=== PATIENT | male | born 1935 | race Caucasian/White ===

== ENCOUNTER 2018-11-10 11:09 | Inpatient (IN) ==
[2018-11-10 12:21] LABS: ALBUMIN 3.2 g/dL (3.5-5.0); CALCIUM 8.2 mg/dL (8.8-10.2); POTASSIUM 4.7 mmol/L (3.5-5.1); TOTAL BILIRUBIN 0.15 mg/dL (0.20-1.00); TOTAL PROTEIN 6.3 g/dL (6.3-8.3)
[2018-11-10 13:35] LABS: BASO# 0.03 X1000 (0.0-0.2); BASO% 0.2 % (0.0-0.8); EOS# 0.17 X1000 (0.0-0.7); EOS% 1.2 % (0.0-10.0); HEMATOCRIT 14.3 % (42.0-52.0); IMM GRAN# 0.04 X1000 (0.0-0.04); IMM GRAN% 0.3 % (0.0-0.5); LYMPH% 20.4 % (20.5-51.1); MCH 29.9 PG (27-31); MCHC 30.8 g/dL (33-37); MCV 97.3 FL (81-99); MONO# 0.98 X1000 (0.11-0.59); MONO% 7.1 % (1.7-9.3); MPV 9.4 FL (7.4-10.4); NEUT# 9.73 X1000 (1.4-6.5); NEUT% 70.8 % (42.2-75.2); PLT 265 X1000 (130-400); RBC 1.47 XMIL (4.7-6.1); RDW 14.2 % (11.5-14.5); WBC 13.75 X1000 (4.8-10.8)
[2018-11-10 13:36] LABS: HEMOGLOBIN 4.4 g/dL (14.0-18.0)
[2018-11-10 13:42] LABS: INR 0.95; PROTIME 13.5 Seconds (11.0-16.0)
--- NOTE | 2018-11-10 14:18 | Diag Imaging Result Doc PS360 ---
EXAM: CHEST-PORTABLE 11/10/2018 HISTORY: SOB TECHNIQUE: AP portable at 1409 COMMENT: There is increased pulmonary vascularity. There is interstitial pulmonary edema and possible atelectasis or pneumonia in the left upper lobe. IMPRESSION: Mild pulmonary edema. Left upper lobe atelectasis. Electronically signed by Nadeem Starr 11/10/2018 2:16 PM
[2018-11-10 15:25] LABS: INR 1.03; PROTIME 14.3 Seconds (11.0-16.0)
[2018-11-10 15:26] LABS: PTT 26.4 Seconds (22.3-41.8)
[2018-11-10] MEDS ORDERED: NITROGLYCERIN ONE (15:32)
[2018-11-10] MEDS ORDERED: ASPIRIN ONE (15:32)
[2018-11-10] MEDS ORDERED: BENADRYL IV ONE (15:58)
[2018-11-10] MEDS ORDERED: LASIX IV ONE (15:58)
[2018-11-10] MEDS ORDERED: ROCEPHIN IM ONE (16:01)
[2018-11-10] MEDS ORDERED: XYLOCAINE-MPF 1% INJ ONE (16:01)
[2018-11-10 16:05] LABS: URINE SOURCE CLEAN CATCH
[2018-11-10 16:08] LABS: BILIRUBIN URINE NEGATIVE (NEGATIVE); BLOOD URINE NEGATIVE (NEGATIVE); COLOR YELLOW; GLUCOSE URINE TRACE mg/dL (NEGATIVE); KETONE URINE NEGATIVE (NEGATIVE); LEUKOCYTES URINE NEGATIVE (NEGATIVE); NITRITE URINE NEGATIVE (NEGATIVE); PROTEIN URINE 50 mg/dL (NEGATIVE); SP GRAVITY URINE 1.005; TURBIDITY URINE CLEAR (CLEAR); UROBILINOGEN URINE NORMAL (NORMAL)
[2018-11-10 16:10] LABS: UR EPITHELIAL CELLS <10 /HPF (<10); URINE BACTERIA NEGATIVE /HPF; URINE RBC <10 /HPF (<10); URINE WBC <10 /HPF (<10)
[2018-11-10 16:18] LABS: URINE YEAST NONE SEEN
--- NOTE | 2018-11-10 16:42 | PROVIDER DOCUMENTATION ---
This chart was entered by Constance Pulido Scribe, acting as scribe for Andre Cooper MD. HPI-Abdominal Pain/GI Problem - General Chief Complaint: Abnormal Lab[s] Stated Complaint: GI BLEED Time Seen by Provider: 11/10/18 11:47 Source: patient Allergies/Adverse Reactions: Patient Allergies Allergy/AdvReac Type Severity Reaction Status Date / Time Penicillins Allergy Unknown Verified 04/30/18 14:03 Home Medications: Home Medication List Medication Instructions Recorded Confirmed Last Taken Type ATORVAstatin [Lipitor] 20 mg PO DAILY 04/30/18 04/30/18 04/30/18 History Atenolol 50 mg PO DAILY 04/30/18 04/30/18 04/30/18 History Furosemide [Lasix] 40 mg PO DAILY 04/30/18 04/30/18 04/30/18 History Levothyroxine [Synthroid] 50 microgm PO DAILY 04/30/18 04/30/18 04/30/18 History Tamsulosin [Flomax] 0.4 mg PO DAILY 04/30/18 04/30/18 04/30/18 History Levofloxacin [Levaquin] 250 mg PO DAILY #14 tab 05/04/18 Unknown Rx Amlodipine [Norvasc] 5 mg PO BID #60 tab 05/05/18 Unknown Rx Insulin Detemir [Levemir] 20 unit SUBQ BID #4 insuln.pen 05/05/18 Unknown Rx Sodium Bicarbonate 1,300 mg PO BID #180 tablet 05/05/18 Unknown Rx - History of Present Illness-ABD Nature of Presenting Problems: Patient is a 83 year old male who presents to the ED with rectal bleeding. Patient states he was seen by PCP yesterday for rectal bleeding. Patient states he was informed yesterday to come to the ED. Patient denies abdominal pain, nausea, vomiting and shortness of breath. Patient states having black stool for 7 months intermittently. Patient states he is on 325 mg aspirin daily. Abdominal Pain Onset Location: reports: other (no abdominal pain per patient.) Pain Radiation: reports: no radiation Quality of Pain: reports: none Severity in ED: reports: mild Onset/Duration: reports: other (7 months) Timing: reports: still present, intermittent Activities at Onset: reports: light activity Modifying Factors: improves with: nothing Associated Symptoms: reports: other (rectal bleeding) Last BM: unsure Dark Stools Present?: reports: black Rectal Pain: reports: none Emesis Description: reports: none Bruising or Bleeding Gums?: No Similar Symptoms Previously?: Yes Recently seen or treated by another doctor?: Yes Review of Systems - Adult - REVIEW OF SYSTEMS - ADULT Constitutional: reports: no symptoms reported Eyes: reports: no symptoms reported Ears, Nose, Mouth & Throat: reports: no symptoms reported Cardiovascular: reports: no symptoms reported Respiratory: reports: no symptoms reported Gastrointestinal: reports: rectal bleeding. denies: abdominal pain, diarrhea, nausea, vomiting Genitourinary: reports: no symptoms reported Musculoskeletal: reports: no symptoms reported Integumentary: reports: no symptoms reported Neurological: reports: no symptoms reported Psychiatric: reports: no symptoms reported Endocrine: reports: no symptoms reported Hematologic/Lymphatic: reports: no symptoms reported Allergic/Immunologic: reports: no symptoms reported All Other Systems: Reviewed and Negative Past History - Adult - PAST MEDICAL HISTORY-ADULT Review of Records: reports: Nursing Assessment Review, Medications Reviewed, Social history reviewed & non-contributory. Major Childhood Illnesses: reports: denies history Cardiovascular: reports: HTN Respiratory: reports: denies history Gastrointestinal: reports: denies history Obstetrical/Gynecological: reports: denies history Genitourinary: reports: kidney disease Musculoskeletal: reports: denies history Neurological: reports: denies history Psychiatric: reports: denies history Endocrine/Immune: reports: Diabetes Other Conditions: reports: denies history - PRIOR SURGERIES/PROCEDURES Surgical/Procedure History: reports: reviewed, not pertinent, cholecystectomy - IMMUNIZATION STATUS Childhood Immunizations: See Nurse Assessment Flu Vaccine: See Nurse Assessment - FAMILY HISTORY Family History: reviewed, not pertinent - SOCIAL HISTORY Smoking: denies Substance Use: denies Living Situation: family Physical Exam-General - PHYSICAL EXAM-ADULT Initial Vital Signs Reviewed: Yes - CONSTITUTIONAL General Appearance: alert, no apparent distress, obese - EYES Eyes: pale conjunctivae - HEAD, EARS, NOSE, MOUTH & THROAT HENMT: other (dry mucous membranes) - RESPIRATORY Respiratory: chest non-tender, lungs clear, normal breath sounds - CARDIOVASCULAR Cardiovascular: normal peripheral pulses, regular rate, rhythm - GASTROINTESTINAL (ABDOMEN) Abdominal Exam: normal bowel sounds, non tender, soft - GENITOURINARY Rectal Exam: black stool - MUSCULOSKELETAL Extremity: normal inspection - SKIN Integumentary: normal turgor, warm/dry, pallor - NEUROLOGIC Neurologic: grossly normal - PSYCHIATRIC Psych/Mental Status: normal mood/affect, oriented x 3 Progress - PLAN OF CARE/RESULTS Progress/Plan/Lab Results: Vital Signs - 8 hr 11/10/18 11:13 11/10/18 12:32 Temperature 97.8 F Pulse Rate 70 66 Respiratory Rate 20 18 Blood Pressure 149/68 131/51 O2 Sat by Pulse Oximetry 100 100 Laboratory Results - last 24 hr 11/10/18 11/10/18 11/10/18 11:29 11:29 13:15 WBC Cancelled 13.75 H RBC Cancelled 1.47 L Hgb Cancelled 4.4 L* Hct Cancelled 14.3 L MCV Cancelled 97.3 MCH Cancelled 29.9 MCHC Cancelled 30.8 L RDW Std Deviation Cancelled 14.2 Plt Count Cancelled 265 MPV Cancelled 9.4 Immature Gran % (Auto) Cancelled 0.3 Neut % (Auto) Cancelled 70.8 Lymph % (Auto) Cancelled 20.4 L Mcdonough % (Auto) Cancelled 7.1 Eos % (Auto) Cancelled 1.2 Baso % (Auto) Cancelled 0.2 Immature Gran # (Auto) Cancelled 0.04 Neut # (Auto) Cancelled 9.73 H Lymph # (Auto) Cancelled 2.80 Mcdonough # (Auto) Cancelled 0.98 H Eos # (Auto) Cancelled 0.17 Baso # (Auto) Cancelled 0.03 Corrected WBC (Man) Cancelled Segmented Neutrophils Cancelled Band Neutrophils Cancelled Lymphocytes Cancelled Monocytes Cancelled Eosinophils Cancelled Basophils Cancelled Metamyelocytes Cancelled Myelocytes Cancelled Promyelocytes Cancelled Nucleated RBCs Cancelled Atypical Lymphocytes Cancelled Blast Cells Cancelled Hypochromia Cancelled Vacuolization Cancelled Toxic Granulation Cancelled Dohle Bodies Cancelled Large Platelets Cancelled Polychromasia Cancelled Poikilocytosis Cancelled Basophilic Stippling Cancelled Anisocytosis Cancelled Microcytosis Cancelled Macrocytosis Cancelled Spherocytes Cancelled Sickle Cells Cancelled Target Cells Cancelled Ovalocytes Cancelled Stomatocytes Cancelled [place] [employer] Bodies Cancelled Kamrar Cells Cancelled Unidentified Cells Cancelled Schistocytes Cancelled Sodium 139 Potassium 4.7 Chloride 109 H Carbon Dioxide 14 L Anion Gap 16 BUN 139 H Creatinine 4.0 H Estimated GFR/1.73 m2 14 BUN/Creatinine Ratio 33 Glucose 215 H Calculated Osmolality 326 Calcium 8.2 L Total Bilirubin 0.15 L AST 22 ALT 27 Alkaline Phosphatase 62 Total Protein 6.3 Albumin 3.2 L Globulin 3.1 Albumin/Globulin Ratio 1.0 Orders Category Date Time Status CBC WITH ELECTRONIC DIFF [HEME] Stat Lab 11/10/18 13:15 Completed COMPREHENSIVE METABOLIC PANEL [CHEM] Stat Lab 11/10/18 11:29 Completed OCCULT BLOOD SCREENING [STOOL] Stat Lab 11/10/18 11:48 Uncollected PROTIME WITH INR [COAG] Stat Lab 11/10/18 13:15 Received PTT [COAG] Stat Lab 11/10/18 13:15 Received GI Bleed (possible) Stat Oth 11/10/18 11:15 Ordered Result Diagrams: 11/10/18 13:15 11/10/18 11:29 - EKG 1 Time of EKG reading by physician:: 15:29 EKG Read and Signed by:: Andre Cooper EKG Interpretation (*Must complete 3 of following elements*): Abnormal Rate: 65 Rhythm: normal sinus rhythm with QRS QRS: RBB Comments: no STEMI - XRAY 1 XRAY Study: Chest Impression: See EMR Report (EXAM: CHEST-PORTABLE 11/10/2018 HISTORY: SOB TECHNIQUE: AP portable at 1409 COMMENT: There is increased pulmonary vascularity. There is interstitial pulmonary edema and possible atelectasis or pneumonia in the left upper lobe. IMPRESSION: Mild pulmonary edema. Left upper lobe atelectasis. Electronically signed by Nadeem Starr 11/10/2018 2: 16 PM 11/10/18 1416 Interpreting Physician: Nadeem Starr MD Dictated Date/Time: 11/10/18 1415 cc: Andre Cooper MD; None,PCP) - CONSULTS/PCP/HOSPITALIST Notification #1 *Consult/PCP/Hospitalist*: Dr. Parnell Time Discussed: 16:02 Reason/Comments: Dr. Cooper consulted with Dr. Parnell about patient. Consult Disposition: other (Dr. Parnell states give the patient blood and do not report trop.) #2 Consult: MIGEL Rondon for Hospitalist Time Discussed: 16:31 (Dr. Acuña accepted admit ) Reason/Comments: Dr. Cooper consulted with JOSE R Rondon about patient, Consult Disposition: Admit Departure - Departure Date of Disposition Decision: 11/10/18 Time of Disposition Decision: 16:32 DIAGNOSIS: Renal failure, Anemia Disposition: ADMITTED INPATIENT 09 Certified Medical Emergency: Emergent Condition: Fair Referrals and Follow-Ups: None,PCP [Primary Care Provider] - - Critical Care Note This patient required my direct & personal management of CC.: Yes Total Time (mins): 75 Critical Care Statement: This patient required my direct personal management to treat or rule out processes, the absence of which, could potentiallly result in sudden, clinically significant life or limb threatening deterioration. Attestation - Physician/ LUCIO Attestation The physician spent face to face time with patient:: Yes Advanced Practice Provider documentation review:: Supervising physician onsite and consulted in the evaluation and care of this patient. The physician did have a face to face encounter with the patient. This chart was documented by the indicated scribe, (Constance Pulido Scribe) and accurately reflects the services I performed and decisions made by me, Andre Cooper MD, as attested by the provider's signature.
[2018-11-10] MEDS ORDERED: ZOFRAN IV PRN (16:47)
[2018-11-10 17:19] LABS: IRON SATURATION 12 %; TIBC 270 ug/dL; TOTAL IRON 32 ug/dL (53-167); UNBOUND IRON 238 ug/dL (112-346)
[2018-11-10 17:38] LABS: FERRITIN 586 ng/mL (30-400)
--- NOTE | 2018-11-10 18:38 | HISTORY AND PHYSICAL ---
PRIMARY CARE PROVIDER: Dr. Pb Fontana PROFESSIONAL HOUSING CONSULTANT: Dr. Peters CHIEF COMPLAINT: Black tarry and bloody stools since April, passed out several days ago in the bathroom, has been having some dizzy spells ever since. HISTORY OF PRESENT ILLNESS: Mr. Brennen Bourgeois is an 83-year-old male with a medical history of morbid obesity and a BMI of 46.3, CKD stage 4, diabetes mellitus type 2, coronary artery disease with an TX back in 2016, hypertension, hypothyroidism. He states that since his discharge back in April 2018 he has been having black and tarry stools with most recently having bloody stools along with his black, tarry stools. He only recently became more symptomatic, more weakness and fatigue than his usual. He does have to use a cane or walker to get around. He was not specific on which day but he said several days ago he had gone to the bathroom and passed out, and he has been having lightheaded dizzy spells ever since. He denies any chest pain or shortness of breath, fever or chills. He denies nausea or vomiting. He has been having some epigastric discomfort that started last night. Laboratory data reveals that he has severe anemia with a hemoglobin of 4.4 and hematocrit 14.3, no obvious anticoagulation that he is on and stable vital signs. He also has chronic elevation of his troponin. EKG was reviewed by Dr. Gelacio Parnell who feels that this is not a STEMI as the paper report says, he is in normal sinus rhythm with a right bundle branch block. Per Dr. Parnell there is no concern as he needs to have significant blood replacement at this time for better coronary perfusion. Dr. Gay also made aware of patient's admission and has planned for EGD for in the morning. We will transfer him to ICU for close observation, blood transfusion. PAST MEDICAL HISTORY: 1. CKD stage 4. 2. Uncontrolled diabetes mellitus type 2 with hemoglobin A1c 7.5 back in April 2018. 3. Coronary artery disease with TX back in 2016, no stents, only medical treatment. 4. Hypertension. 5. Hyperlipidemia. 6. Hypothyroidism. 7. Chronic bilateral lower extremity edema. 8. Morbid obesity with a BMI of 46.3. 9. Perineal abscess back in April that was positive for E. coli and Proteus, was treated and has resolved. 10. BPH> SURGICAL HISTORY: 1. Cholecystectomy. 2. Colorectal fistula repair. SOCIAL HISTORY: Moved here back in August 2017 from [place], lives in [place], uses a can to walk for ambulation. He denies tobacco, alcohol, or illicit drug use. He lives with his . FAMILY HISTORY: Mother had bone cancer, father had emphysema, and myocardial infarction. ALLERGIES: Penicillin. HOME MEDICATIONS: Have not yet been verified. No current medication reconciliation. Medications from back in April: He was on atenolol, Lipitor, Lasix, Synthroid, lisinopril, sodium bicarbonate, and Flomax, but it looks like he had medications added on discharge, at that time he had gone home with Levaquin, they added Levemir to the regimen. REVIEW OF SYSTEMS: A 14-point review of systems was completed and all are negative except as mentioned above and in HPI. PHYSICAL EXAMINATION: VITAL SIGNS: Temperature 97.3. Heart rate 71. Respiratory rate 20. Blood pressure 131/61. O2 saturation 100% on 2 liters. GENERAL: Mr. Brennen Bourgeois is an 83-year-old male. He is in no acute distress. He is able to answer questions appropriately. HEENT: Atraumatic and normocephalic. Pupils are equal, round and reactive to light. Extraocular movements were intact. Mucous membranes are dry. Sclerae are pale. NECK: Trachea midline. CARDIOVASCULAR: S1, S2, regular rate and rhythm. No rubs, gallops, or murmurs. He has +3 to +4 bilateral lower extremity dependent pitting edema. +1 dorsalis, +2 radial pulses. Unable to assess for JVD due to body habitus, he is negative for carotid bruits. PULMONARY: Clear to auscultation with bilateral breath sounds. No accessory muscle use or work of breathing noted. GASTROINTESTINAL: Soft, nontender, nondistended. Positive bowel sounds x4. No tenderness in the epigastric region when palpated. EXTREMITIES: Decreased range of motion secondary to morbid obesity. Strength is about 3/5 in the lower extremities, 4/5 in the upper extremities. NEUROLOGICAL: A and O x3. Follows commands. Sensory is intact. SKIN: Warm, dry, and intact, very pale. He has dark coloration of the sacrum, probably due to body size and pressure. LABORATORY DATA: White blood cells 13, hemoglobin 4.4, hematocrit 14.3, platelet count 265. INR 1.03. Sodium 139, potassium 4.7, BUN 139, creatinine 4, glucose 215. Calcium 8.2, magnesium 1.8, bilirubin 0.15, AST 22, ALT 27. Troponin 0.127. Albumin 3.2. Serum lactate 1.6. Urinalysis 50 protein, otherwise negative. IMAGING: Chest x-ray: Mild pulmonary edema, left upper lobe atelectasis. EKG, which is not in the computer showing up, but reviewed by Dr. Gelacio Parnell and visualized, reveals a normal sinus rhythm, rate 65, QTC 470 with a right bundle branch block, it reports STEMI but this is not a STEMI per Dr. Parnell. ASSESSMENT AND PLAN: 1. Gastrointestinal bleed with severe acute blood loss anemia on top of chronic anemia. He will be started on a Protonix drip. He can have Carafate, we will make him n.p.o. after midnight, clear liquids for now. Dr. Gay aware and at bedside. Plans for EGD for in the morning. Hold any type anticoagulation. He is going to receive 4 units of packed red blood cells. 2. Chronic troponinemia. EKG reviewed by Dr. Parnell, there just needs to be an increase in his hemoglobin to improve the coronary artery perfusion. We will get an echocardiogram for in the morning. 3. Lower extremity edema along with mild pulmonary edema. The patient will receive 20 of Lasix IV with packed red blood cells. Again, we will review echocardiogram in the morning. 4. Chronic kidney disease stage 3, likely with acute kidney injury on top of that. He normally has a BUN in the range of 70s to 90s back in April, but currently he is 139. The creatinine baseline is 3.4 to 4.3 back in April, and he is currently 4, so creatinine is at baseline, BUN is elevated. He is followed by Dr. Peters. We may need to get him involved as well. 5. Uncontrolled diabetes mellitus type 2. He is hyperglycemic at this time. We will do pattern blood glucoses and sliding scale insulin, and once his home medications are verified, we will continue his home insulin regimen that was added back in April. 6. Hypothyroidism. We will continue Synthroid once it is verified. 7. Hypertension. Continue home medications once verified although he is severely anemic, his blood pressure is stable and he is not tachycardic. 8. Morbid obesity with a BMI of 46.3, that is up from his last admission which was 45.4, could be fluid volume overload adding to the weight gain as he does have significant lower extremity edema. 9. Deep venous thrombosis prophylaxis with SCDs. Dictated by MIGEL Bernal for Fadi Acuña MD cc: MIGEL Bernal MD
--- NOTE | 2018-11-10 18:54 | Diag Imaging Result Doc PS360 ---
CT ABDOMEN/PELVIS W/O CONTRAST - 11/10/2018 INDICATION: GIB COMPARISON: 05/04/2018 FINDINGS: There is stable fibrosis in the lung bases. Anemia is present. No renal stones or obstruction. Stable cysts of the right kidney. There is severe diverticulosis throughout the entire colon. No visible bowel obstruction or inflammation. Normal appendix. Martinez catheter in the urinary bladder. Prostate and rectum are normal. There are chronic bilateral L5 pars defects. There is severe degeneration throughout the spine. No acute bony lesions. IMPRESSION: Severe diverticulosis coli. No acute process. This exam was performed using automated exposure control, adjustment of mA or kV according to patient size, and/or use of iterative reconstruction technique Electronically signed by Peter Seymour 11/10/2018 6:52 PM
[2018-11-10] MEDS: CARAFATE LIQUID PO SCH (20:00)
[2018-11-10] MEDS ORDERED: NS 250 ML ONE (22:36)
[2018-11-10] MEDS: HUMULIN R SUBQ SCH (23:39)
--- NOTE | 2018-11-11 02:30 | GASTROENTEROLOGY CONSULTATION ---
DATE OF CONSULTATION: 11/10/2018 REQUESTING PHYSICIAN: Dr. Loja. PRIMARY CARE DOCTOR: Dr. Pb Fontana. REASON FOR CONSULTATION: Melena. HISTORY OF PRESENT ILLNESS: Mr. Bourgeois is an 83-year-old male, who had recently moved from [place] in 2016. He has not established a primary care physician yet. He was admitted today for syncope and dizziness. He was noted to have low hemoglobin on admission. The labs on admission showed hemoglobin of 4.4 g, and hematocrit of 14.3 percentage. According to the patient, he is having black stools since April 2018. The patient has been on full dose aspirin for the last 2 years. The patient denies having any history of recent EGD. In the ER, he was started on IV fluids and IV PPIs, and a blood transfusion. He was also noted to have mildly elevated troponins. The primary care is managing it. The patient denies any vomiting blood. The patient has been feeling weak and tired and dizzy, and has passed out several days ago in the bathroom. The patient denies any blood in the urine. No nosebleeds. PAST MEDICAL HISTORY: 1. Chronic kidney disease. 2. Uncontrolled diabetes mellitus type 2. 3. Coronary artery disease with MO in 2017. 4. Hypertension. 5. Hyperlipidemia. 6. Hypothyroidism. 7. Chronic bilateral lower extremity edema. 8. Morbid obesity, with BMI 46.3. 9. Perineal abscess back in April that was positive for E coli and Proteus, and was treated. 10. BPH. PAST SURGICAL HISTORY: Cholecystectomy and colorectal fistula repair. SOCIAL HISTORY: He moved to [place] in August 2017 from [place]. He lives in [place]. He uses a cane for ambulation. He denies any tobacco, alcohol, or illicit drugs. He lives with his at home. FAMILY HISTORY: Mother had bone cancer. Father had emphysema and myocardial infarction. ALLERGIES: Penicillin. MEDICATIONS: Reviewed. He is on full dose aspirin at home. The final list of home medications is being compiled. MEDICATIONS IN THE HOSPITAL: Including ongoing blood transfusion. Was given 1 dose of Protonix. Currently, he is on Tylenol, Humulin R, Zofran, Protonix, Protonix drip, Carafate, ceftriaxone. REVIEW OF SYSTEMS: Denies any fevers, rigors, chills, chest pain. He does have some shortness of breath on exertion. He does complain of feeling weak and tired, and had falls in the recent past. He complains of dark stools going off-and-on since April 2018. Denies any vomiting blood. He does have chronic lower extremity edema, history of renal insufficiency. He denies any blood in the urine. PHYSICAL EXAMINATION: Vital Signs: Temperature of 98.6 degrees, pulse rate of 71, respiratory rate 17, blood pressure 137/61, saturating 100% on 2 L. Body weight of 300 pounds, BMI 46.3 kg/m2. General Appearance: Morbidly obese, lying in bed, in no acute distress. HEENT: Pale conjunctivae. No icterus. Pupils equal, reactive to light. Neck: Supple. Abdomen: Obese, soft, nontender, nondistended. No guarding. Extremities: Bilateral lower extremity edema noted. Neurologic: Alert, awake, oriented x3. LABS: Hemoglobin and hematocrit is 4.4 and 14.3. White count 13.75, platelet count of 265,000. INR 1.03, PT of 14.3, PTT of 26.4. Sodium 139, potassium 4.7, chloride 109, bicarb of 14, anion gap of 16, BUN of 139, creatinine 4, glucose of 215, calcium is 8.2, magnesium 1.8. Iron level of 32. Percent saturation of 12%. Ferritin of 586. Total bilirubin is 0.15, AST 22, ALT 27, alkaline phosphatase is 62, total protein is 6.3, albumin of 3.2. Troponins of 0.127. Lactate of 1.6, B12 of 853, folate of 26.2. Urinalysis showing protein, trace glucose. Stool for occult blood was positive. Flu screen was negative. The patient had a chest x-ray done, which showed mild pulmonary edema and left upper lobe atelectasis. The patient had an abdominal and pelvic CT scan done, which showed severe diverticulosis coli, and no acute process. IMPRESSION AND PLAN: 1. Severe anemia. 2. Melena. 3. Morbid obesity. 4. Diverticulosis of the colon. 5. History of coronary artery disease, and mildly elevated troponins. RECOMMENDATIONS: 1. The patient will be admitted to the ICU. The patient will continue on the Protonix drip. The patient will be on a clear liquid diet. The patient will be transfused 4 units of blood today per the primary care team. They are watching closely for any worsening of pulmonary edema, or any worsening of heart or cardiac status. He will continue on Carafate 1 g every 6 hours. 2. The patient will have serial hematocrits, and transfused to keep the hematocrit more than 27%. 3. The patient is scheduled for an EGD tomorrow with Anesthesia. The risks, benefits, indications, and alternatives to the procedure were discussed with the patient, and all questions answered. The patient is a high risk of any endoscopic procedure, including EGD, because of multiple comorbid conditions, including her condition of pulmonary edema and morbid obesity. 4. The patient acknowledged understanding and agreed to proceed with the above. The above plan was discussed with the patient and the nursing staff and the primary care team, and all questions answered. Please call us with any further questions. cc: MD Fadi Pimentel MD
[2018-11-11] MEDS: CARAFATE LIQUID PO SCH ×4 (03:36→19:27)
[2018-11-11] MEDS: PROTONIX 80 MG in NS 80 ML IV SCH ×3 (04:39→13:47)
[2018-11-11 05:49] LABS: BASO# 0.02 X1000 (0.0-0.2); BASO% 0.2 % (0.0-0.8); EOS# 0.25 X1000 (0.0-0.7); EOS% 2.1 % (0.0-10.0); HEMATOCRIT 24.5 % (42.0-52.0); IMM GRAN# 0.05 X1000 (0.0-0.04); IMM GRAN% 0.4 % (0.0-0.5); LYMPH# 2.57 X1000 (1.2-3.4); LYMPH% 21.7 % (20.5-51.1); MCH 29.5 PG (27-31); MCHC 32.7 g/dL (33-37); MCV 90.4 FL (81-99); MONO# 0.87 X1000 (0.11-0.59); MONO% 7.4 % (1.7-9.3); MPV 9.9 FL (7.4-10.4); NEUT# 8.07 X1000 (1.4-6.5); NEUT% 68.2 % (42.2-75.2); PLT 208 X1000 (130-400); RBC 2.71 XMIL (4.7-6.1); RDW 14.6 % (11.5-14.5); WBC 11.83 X1000 (4.8-10.8)
[2018-11-11 06:28] LABS: CALCIUM 8.6 mg/dL (8.8-10.2); CREATININE 4.1 mg/dL (0.7-1.2); MAGNESIUM 1.7 mg/dL (1.5-2.7); POTASSIUM 4.1 mmol/L (3.5-5.1); TOTAL BILIRUBIN 0.41 mg/dL (0.20-1.00); TOTAL PROTEIN 5.9 g/dL (6.3-8.3)
[2018-11-11] MEDS: HUMULIN R SUBQ SCH ×4 (07:32→21:38)
--- NOTE | 2018-11-11 07:50 | EKG Report ---
Test Performed on : 11/11/2018 06:57:55 AM Test Reason : severe anemia Blood Pressure : / mmHG Vent. Rate : 072 BPM Atrial Rate : 072 BPM P-R Int : 264 ms QRS Dur : 076 ms QT Int : 418 ms P-R-T Axes : 018 -36 030 degrees QTc Int : 457 ms Sinus rhythm. with 1st degree AV block. Left axis deviation Low voltage QRS Possible Lateral infarct (cited on or before 30-APR-2018) Inferior infarct , old Abnormal ECG When compared with ECG of 11-NOV-2018 06:57, (Unconfirmed) premature supraventricular complexes. are no longer present Confirmed by Rubén ALAS, Blaine Crowe ([id number]) on 11/11/2018 4:50:37 PM
[2018-11-11 07:51] LABS: INR 1.06; PROTIME 14.7 Seconds (11.0-16.0)
[2018-11-11 07:54] LABS: UR CREAT RANDOM 36.3 mg/dL (14-26); UR PROT RANDOM 75.4 mg/dL
[2018-11-11 08:10] LABS: PTT 27.4 Seconds (22.3-41.8)
--- NOTE | 2018-11-11 08:14 | Diag Imaging Result Doc PS360 ---
CHEST-PORTABLE - 11/11/2018 INDICATION: pulmonary edema COMPARISON: 11/10/2018 FINDINGS: Stable cardiomegaly and pulmonary vascular congestion. Stable interstitial pulmonary edema. IMPRESSION: No change from prior. Electronically signed by Peter Seymour 11/11/2018 8:12 AM
[2018-11-11] MEDS ORDERED: XYLOCAINE-MPF 2% ONE (08:53)
[2018-11-11] MEDS ORDERED: DIPRIVAN 1% ONE (08:54)
[2018-11-11] MEDS ORDERED: MYLICON DROPS ONE (08:57)
[2018-11-11 09:12] LABS: HEMATOCRIT 24.7 % (42.0-52.0); HEMOGLOBIN 8.1 g/dL (14.0-18.0)
[2018-11-11] MEDS ORDERED: EPINEPHRINE SYRINGE ONE (09:29)
--- NOTE | 2018-11-11 10:11 | EKG Report ---
Test Performed on : 11/10/2018 3:29:02 PM Test Reason : ED. No order in [place] Blood Pressure : / mmHG Vent. Rate : 065 BPM Atrial Rate : 067 BPM P-R Int : 000 ms QRS Dur : 090 ms QT Int : 452 ms P-R-T Axes : 000 -25 -13 degrees QTc Int : 470 ms Junctional rhythm. Low voltage QRS ST elevation, consider inferior injury or acute infarct ACUTE MO / STEMI Consider right ventricular involvement in acute inferior infarct Abnormal ECG When compared with ECG of 10-NOV-2018 15:24, (Unconfirmed) Junctional rhythm. has replaced Sinus rhythm. Unconfirmed Result
--- NOTE | 2018-11-11 10:48 | OPERATIVE NOTE ---
PROCEDURE DATE: 11/11/2018 DICTATING PHYSICIAN: Dr. Loja. PRIMARY CARE DOCTOR: None. TITLE OF PROCEDURE: Esophagogastroduodenoscopy with hemostasis. PREOPERATIVE DIAGNOSES: 1. Severe anemia on admission. Hemoglobin of 4.4, after receiving 4 units of blood transfusion. 2. Morbid obesity. 3. History of use of aspirin for many years. 4. Melena going on for the last 6 months. POSTOPERATIVE DIAGNOSES: 1. Z-line was at 45 cm. 2. Evidence of bile in the stomach. 3. Evidence of gastritis in the body and antrum. 4. Normal fundus, cardia, incisura on retroflexion. 5. Evidence of a large duodenal bulb ulcer on the anterior wall with a visible vessel. This was treated with epinephrine and cautery. 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 6. Normal second portion of the duodenum. ESTIMATED BLOOD LOSS: Minimal. COMPLICATIONS: None. ANESTHESIA: Monitored anesthesia care per the anesthesiologist. SPECIMENS: None. DESCRIPTION OF PROCEDURE IN DETAIL: After informed consent from the patient, explaining the risks, benefits, indications, alternatives to the procedure, the patient was prepared for EGD. The patient was brought to the OR. He was turned onto the left lateral position. A bite block was placed in the patient's mouth. After adequate monitored anesthesia care, the upper scope was introduced all the way to the second portion of the duodenum. The esophagus was normal in its entire length. The Z-line was at 45 cm. The stomach showed evidence of bile which was suctioned out. There was evidence of erythema in the body and antrum suggesting gastritis. Retroflexion of normal fundus, cardia, incisura. The duodenal bulb showed evidence of a large ulcer measuring about 1.5 cms in the anterior aspect of the duodenal bulb with the visible vessel treated with epinephrine 5 mL in 4 quadrants, followed by monopolar cautery with successful hemostasis. There was evidence of periampullary diverticulum just past the ulcer. The second portion of duodenum appeared normal. The air and the scope withdrawn. The patient tolerated the procedure well, currently monitored in the OR in stable condition. RECOMMENDATIONS: 1. Patient will be on Protonix twice daily for 3 months and then wean down to Zantac twice daily. 2. We will start the patient on Carafate 1 g 6 hours for 6 weeks. 3. We will start patient on Iron C twice daily for 3 months. We will next start the patient on multivitamin once daily for 3 months. 4. Patient will follow up in the clinic in 3 months. The patient will need a repeat EGD in 3 months to document healing. 5. The patient to avoid any NSAIDs for now. 6. We will watch patient's hematocrit and transfuse as needed. 7. Patient will be started on a clear liquid diet. We will avoid excessive tea , coffee, soda, tomatoes, onions, spicy foods. 8. Further recommendations pending the hospital course. Discussed with patients family and all questions were answered. Please call us with any further questions. cc: MD Lucien Pimentel MD [facility]
[2018-11-11] MEDS: SODIUM BICARBONATE PO SCH ×2 (14:04→21:38)
[2018-11-11] MEDS: CENTRUM SILVER PO SCH (14:04)
[2018-11-11 15:37] LABS: HEMATOCRIT 24.2 % (42.0-52.0); HEMOGLOBIN 7.9 g/dL (14.0-18.0)
--- NOTE | 2018-11-11 18:15 | PROGRESS NOTE ---
DATE: 11/11/2018 INTERVAL HISTORY: Patient with somewhat improved weakness and dizziness after transfusion. Initial hemoglobin 4.4, but up to 8.0 after transfusion and relatively stable since then. No clear signs or symptoms of ongoing bleeding this morning. Status post EGD showing gastritis in the body and large duodenal bulb ulcer with visible vessel which was cauterized and injected. No further dizziness. No new complaints. No other acute events overnight. REVIEW OF SYSTEMS: Twelve point review of systems negative except as per interval history. LABS: WBC 11.8, admission hemoglobin 4.4, this morning's hemoglobin 8, repeat 7.9, platelets 208,000. PTT and INR within normal limits. Bicarb 13, BUN 122, creatinine 4.1 , glucose 123-158. Troponin 0.114, improved from previous. ProBNP 9,055. IMAGING: Chest x-ray with cardiomegaly and minimal pulmonary vascular congestion which is stable from previous. VITAL SIGNS: T-max 98.4, pulse 61, respirations 18, blood pressure 142/67, O2 saturation 97% on 2 L by nasal cannula. PHYSICAL EXAMINATION: General: No acute distress. Vital signs: As above. HEENT: Normocephalic, atraumatic. Moist mucous membranes. No cervical lymphadenopathy. Cardiovascular: Regular rate and rhythm. No murmurs, rubs, or gallops. Pulmonary: Clear to auscultation bilaterally. Abdomen: Soft. Minimal epigastric tenderness without rebound or guarding. Bowel sounds positive. Extremities: Peripheral pulses intact. Trace lower extremity edema bilaterally. Neurologic: Cranial nerves grossly intact. No focal deficits identified. Psychiatric: Normal mood and affect. Awake, alert, and oriented x3. Skin: No new rashes or lesions seen. ASSESSMENT AND PLAN: 1. Upper gastrointestinal bleed with acute posthemorrhagic anemia. Patient with profoundly low hemoglobin of 4.4 on admission. Was having syncope and dizziness. Transfused 4 units with improvement in his hemoglobin to 8, which appears to be stable over the course of the day. Status post EGD this morning showing large duodenal ulcers as well as gastritis. Continue PPI and monitor for evidence of rebleeding. 2. Chronic kidney disease 4. Patient with creatinine 4.1. Baseline appears to be approximately 3.9, so likely at or near baseline. Will monitor closely. 3. Chronically elevated troponin. EKG reviewed by Dr. Parnell. Cardiology does not believe that this represents ACS. Likely related to chronic kidney disease with possible mild demand ischemia/type 2 MT. Continue to monitor. 4. Diabetes mellitus. Good control on current regimen. We will continue current management. 5. Hypothyroidism. Continue Synthroid. 6. Hypertension. Blood pressure normal to mildly elevated off his home medications. If further elevation develops, we will consider restarting home Norvasc and atenolol. 7. Morbid obesity. Patient counseled on diet and exercise. 8. Lower extremity edema, mild pulmonary edema, likely chronic diastolic CHF. Chest x-ray fairly similar to previous and BNP only somewhat higher. He was given Lasix between units of blood last night. No dyspnea but given ongoing lower extremity edema and some pulmonary edema, we will restart home Lasix and monitor closely. Last echo December of 2017 with normal EF, mild pulmonary hypertension, and likely diastolic failure. 9. DVT proph: Gena SANCHEZ
[2018-11-11] MEDS: ICAR-C PO SCH (18:20)
[2018-11-11 21:11] LABS: HEMATOCRIT 24.4 % (42.0-52.0); HEMOGLOBIN 7.9 g/dL (14.0-18.0)
--- NOTE | 2018-11-12 00:05 | ECHO REPORT ---
ORDER DATE: 11/11/2018 MEASUREMENTS: Left ventricular end-diastolic diameter 4.2, end systolic diameter 3.3, septal thickness 1.7, aortic root 3.8, left atrium 4.0. SUMMARY: 1. Technically difficult study due to limited acoustic window quality. Intravenous echo contrast agent Definity was utilized to enhance endocardial definition. 2. Mild sclerosis of trileaflet aortic valve demonstrated with normal aortic valve opening evident. Peak gradient across the aortic valve is less than 10 mmHg. Mitral, tricuspid, and pulmonic valves are without evidence of structural abnormality with very mild mitral regurgitation and trace tricuspid regurgitation. The aortic root is borderline enlarged. 3. Normal left ventricular chamber size with moderate concentric left hypertrophy is demonstrated. Estimated left ejection fraction approximately 55%. No focal wall motion abnormalities evident. Left atrium is borderline enlarged. The right atrium and right ventricle normal in size with grossly preserved right ventricular systolic function. 4. No pericardial effusion. 5. Inferior vena cava not well demonstrated. cc: MD Nela Blair CRNP
[2018-11-12] MEDS: PROTONIX 80 MG in NS 80 ML IV SCH ×3 (00:27→20:15)
[2018-11-12] MEDS: CARAFATE LIQUID PO SCH ×4 (02:35→20:38)
[2018-11-12 05:24] LABS: ALBUMIN 2.8 g/dL (3.5-5.0); CALCIUM 8.1 mg/dL (8.8-10.2); CREATININE 4.2 mg/dL (0.7-1.2); HEMATOCRIT 28.2 % (42.0-52.0); HEMOGLOBIN 9.5 g/dL (14.0-18.0); PHOSPHORUS 5.9 mg/dL (2.7-4.5); POTASSIUM 4.3 mmol/L (3.5-5.1)
[2018-11-12] MEDS: HUMULIN R SUBQ SCH ×4 (06:36→20:38)
[2018-11-12] MEDS: ICAR-C PO SCH ×2 (07:58→17:01)
[2018-11-12] MEDS: SODIUM BICARBONATE PO SCH ×2 (08:03→20:38)
[2018-11-12] MEDS: LASIX PO SCH (08:03)
[2018-11-12] MEDS: CENTRUM SILVER PO SCH (08:03)
--- NOTE | 2018-11-12 08:44 | NEPHROLOGY CONSULTATION ---
DATE: 11/11/2018 REASON FOR ADMISSION: Black tarry stools for several days. He states that this has been going on since April. REASON FOR CONSULT: Acute kidney injury on CKD, stage 3B/4. CONSULTING PHYSICIAN: johnson Palacios CRNP. HISTORY OF PRESENT ILLNESS: Mr. Bourgeois is an 83-year-old white male, who has been seen in our practice for chronic kidney disease, stage 4, last seen 08/18/2018. At that time, his creatinine was 3.6. It has been as high as 3.9 in 2017. He was referred to [facility] for evaluation for fistula placement on 06/21/2018. The patient states that he did not go. His next follow-up appointment is 11/23/2018. The patient states that he was discharged in April 2018 for having black tarry stools. These have continued on and off during this period of time. He has become more symptomatic. He is weak. He has fatigue. He uses a cane or a walker to get around. States that he has not had any chest pain or increased work of breathing. He denies any fever or chills. No nausea or vomiting. He does have some epigastric discomfort at night, mostly when he lays down. His laboratory data revealed a hemoglobin of 4.4 with a hematocrit of 14.3. Subsequently, patient was admitted to the ICU. He was evaluated and had 4 units of packed red blood cells transfused. Hemoglobin this a.m. is up to 8. He states that he is feeling just slightly better. He is n.p.o. at this time with plan for an EGD per Dr. Gay this a.m. PAST MEDICAL HISTORY: Chronic kidney disease, stage 4; patient's baseline creatinine is 3.6 to 3.9 for the past 2 years. Uncontrolled diabetes mellitus, type 2; last A1c 7.5 in April 2018. Coronary artery disease with an AL in 2017, no stents, medical treatment only. Hypertension, hyperlipidemia, hypothyroidism, chronic bilateral lower extremity edema, morbid obesity, perianal abscess in April positive for E coli and Proteus. He has BPH, anemia of chronic disease, and osteodystrophy of chronic disease. PREVIOUS SURGICAL HISTORY: Cholecystectomy, colorectal fistula repair in the past. SOCIAL HISTORY: The patient has recently moved here from [place] in 2016. He lives with his . Denies tobacco, alcohol, or illicit drug use. FAMILY HISTORY: Mother had a bone cancer. Father had emphysema and a myocardial infarction, CURRENT ALLERGIES: Listed as penicillin. HOME MEDICATIONS: Have yet to be reconciled. He has indicated atenolol, Lipitor Synthroid, lisinopril, and sodium bicarbonate, along with B complex vitamin. REVIEW OF SYSTEMS: Review of systems times 10 with pertinent positives listed above in the HPI. PHYSICAL EXAMINATION: Most recent vital signs: Temperature 98.4 degrees, blood pressure 142/58, heart rate 66, respirations are 20. He is on 2 L nasal cannula, last recorded saturation 98%. Intake and output: He has had 1615 in. He has had 2 L out to his Martinez catheter. General: This is an 83-year-old elderly male. He appears chronically ill, though no acute distress. Skin: Warm and dry. HEENT: Normocephalic, atraumatic. Conjunctivae are pale. THI. Mucous membranes are dry. Neck: Supple. Trachea midline. No evidence of JVD in the upright position. Cardiovascular: He is regular rate and rhythm. Appears to be sinus bradycardia in the 60s. He has an S4 that is present. Lungs: Clear to auscultation bilaterally with equal excursion. He is on O2. Abdomen: Large, round, soft. Nontender. Positive bowel sounds, hypoactive, noted. Genitourinary: Not inspected. Martinez catheter is in place. Integumentary: No rashes or lesions evident, though he does have some ecchymoses in different stages of healing to the upper and lower extremities. His sacrum was not inspected. Neurological: Alert and oriented to person and to place. DIAGNOSTIC DATA: Sodium 140, potassium 4.1, chloride 110, CO2 of 13, BUN 122, creatinine 4.1, glucose 128, anion gap 17, calcium 8.6. Magnesium 1.7. Albumin 3. White count 11.83, hemoglobin 8, hematocrit 24.5 with a platelet count of 208. His pro-time is 14.3, INR of 1.03, PTT 26.4. The patient had a total iron percent saturation of 12%, but his ferritin was 586. CT of the abdomen shows stable kidneys with a cyst on the right. ASSESSMENT AND PLAN: 1. Acute kidney injury on chronic kidney disease, stage 4. Patient's BUN is 122 with a creatinine of 4.1. We have discussed possibilities of hemodialysis in the past. I have brought it up today. Patient states that he thinks the decision was made by his in June and August of not going to the [facility]. We have requested that she be present later on this afternoon when Dr. Peters returns. We will check urine electrolytes. It is noted that his hemoglobin was 4.4 on admission. This will possibly improve after his transfusion, with labs to be repeated later on this afternoon. 2. Electrolytes and acid-base balance. Patient remains acidic more than likely secondary to #1. We will continue to monitor and re-evaluate. He was started on sodium bicarbonate. His home medications have yet to be reconciled this a.m. 3. Anemia. The patient was transfused 4 units of packed red blood cells by the primary care team with Dr. Gay planning an EGD today. 4. Gastrointestinal (GI) bleed. Again, with Dr. Gay following. 5. Elevated troponins. EKG has been completed, and Cardiology has checked, with an echocardiogram ordered later today. 6. Possible urinary tract infection (UTI). Patient is currently on Rocephin. I would to thank you for allowing us to follow with this patient. Dictated by MIGEL Perez for Chema Peters MD cc: MIGEL Perez MD [facility]
[2018-11-12] MEDS ORDERED: CALMOSEPTINE OINTMENT TOP PRN (13:39)
[2018-11-12] MEDS ORDERED: DITROPAN XL PO ONE (16:58)
[2018-11-12 17:24] LABS: HEMATOCRIT 24.8 % (42.0-52.0); HEMOGLOBIN 7.8 g/dL (14.0-18.0)
[2018-11-12] MEDS: DITROPAN PO SCH (20:38)
--- NOTE | 2018-11-13 01:27 | NEPHROLOGY PROGRESS NOTE ---
DATE: 11/12/2018 SUBJECTIVE: He is doing better and he is eating this morning, awake, alert. He is eating clear liquids. No nausea or vomiting. OBJECTIVE: Vital Signs: Blood pressure 119/61, heart rate 70, respirations 23, afebrile. General: No acute distress. Skin: Warm and dry. Neck: Neck veins are not distended. Oropharynx is moist. Heart: Regular. Lungs: Equal. No crackles. Abdomen: Soft, nontender. Bowel sounds are present. Extremities: Have no edema, clubbing, or cyanosis. IMPRESSION AND PLAN: Chronic kidney disease stage 5. He is really at his historical baseline. BUN was markedly elevated but likely from gastrointestinal bleeding. Improving daily. He does have a moderate metabolic acidosis but it is improving and so we will simply observe without further treatment. cc: Chema Peters MD
[2018-11-13] MEDS: CARAFATE LIQUID PO SCH ×4 (01:48→20:44)
--- NOTE | 2018-11-13 02:00 | PROGRESS NOTE ---
DATE: 11/12/2018 SUBJECTIVE: The patient is resting in bed. She has family present in the room. Not in any obvious distress. OBJECTIVE: Vital signs: Temperature 98.8 degrees, pulse 60, respirations 26, blood pressure 160/53, oxygen saturation is 97%. HEENT: Atraumatic and normocephalic. Cardiovascular: S1 and S2. Respiratory: Has evidence of good air entry bilaterally. Abdomen: Soft, obese, nontender. No masses felt. Extremities: No significant edema noted. Central nervous system: No obvious focal deficit noted. LABORATORY DATA: Hematocrit is 24.8. Sodium is 146, potassium is 4.3, chloride is 140, bicarbonate is 15, BUN is 99, creatinine is 4.2. ASSESSMENT AND PLAN: 1. Gastrointestinal bleed. Maintain the patient on proton pump inhibitor. Follow up on hemoglobin and hematocrit. Transfuse packed red blood cells as needed. 2. Chronic kidney disease. Follow up on renal function. Avoid nephrotoxic agents. Consult with Nephrology. 3. Elevated troponin level. Etiology not clear, may be related to chronic kidney disease with possible demand ischemia. We will consult Cardiology. 4. Diabetes mellitus. Monitor blood sugar levels. Maintain the patient on sliding-scale insulin. 5. Hypothyroidism. Continue levothyroxine. 6. Deep vein thrombosis prophylaxis. Sequential compression devices. 7. Gastrointestinal prophylaxis. The patient is on proton pump inhibitor. cc: Fadi Acuña MD
[2018-11-13 06:35] LABS: MCV 91.9 FL (81-99)
[2018-11-13] MEDS: HUMULIN R SUBQ SCH ×4 (06:36→20:44)
[2018-11-13] MEDS: PROTONIX 80 MG in NS 80 ML IV SCH ×2 (06:36→17:09)
[2018-11-13 06:54] LABS: CALCIUM 8.3 mg/dL (8.8-10.2); CREATININE 4.1 mg/dL (0.7-1.2); PHOSPHORUS 5.2 mg/dL (2.7-4.5)
[2018-11-13 07:26] LABS: WBC 11.67 X1000 (4.8-10.8)
[2018-11-13 07:27] LABS: HEMATOCRIT 23.9 % (42.0-52.0); HEMOGLOBIN 7.8 g/dL (14.0-18.0)
[2018-11-13 07:28] LABS: MCHC 32.6 g/dL (33-37); MPV 10.1 FL (7.4-10.4); PLT 224 X1000 (130-400); RDW 15.4 % (11.5-14.5)
[2018-11-13 07:29] LABS: BASO% 0.2 % (0.0-0.8); EOS% 3.8 % (0.0-10.0); LYMPH% 24.1 % (20.5-51.1); MONO% 9.1 % (1.7-9.3); NEUT% 62.5 % (42.2-75.2)
[2018-11-13 07:30] LABS: IMM GRAN% 0.3 % (0.0-0.5); LYMPH# 2.81 X1000 (1.2-3.4); MONO# 1.06 X1000 (0.11-0.59); NEUT# 7.31 X1000 (1.4-6.5)
[2018-11-13 07:31] LABS: BASO# 0.02 X1000 (0.0-0.2); EOS# 0.44 X1000 (0.0-0.7); IMM GRAN# 0.03 X1000 (0.0-0.04)
[2018-11-13] MEDS: ICAR-C PO SCH ×2 (07:45→17:09)
[2018-11-13] MEDS: DITROPAN PO SCH ×2 (08:01→20:44)
[2018-11-13] MEDS: LASIX PO SCH (08:01)
[2018-11-13] MEDS: CENTRUM SILVER PO SCH (08:01)
[2018-11-13] MEDS: SODIUM BICARBONATE PO SCH ×2 (08:01→20:44)
[2018-11-13] MEDS: FLOMAX PO SCH (10:45)
[2018-11-13] MEDS: NORVASC PO SCH ×2 (10:45→20:44)
--- NOTE | 2018-11-13 15:06 | PROGRESS NOTE ---
DATE: 11/13/2018 INTERVAL HISTORY: The patient with no further signs or symptoms of active bleeding. Blood count is pretty stable. Remains on PPI. No acute events overnight. No new complaints aside from increase in his arthritis pain since he is not taking NSAIDs currently. REVIEW OF SYSTEMS: 12 point review of systems negative except per interval history. LABORATORY: WBC 11.6, hemoglobin 7.8, hematocrit 23.9 and platelets 224. Sodium 143, potassium 4, bicarb 17, BUN 87, creatinine 4.1, glucose 128-215, phosphorous 5.2, calcium 8.3, albumin 3. OBJECTIVE: Vital signs: T-max 99.5, pulse 73, respirations 17, blood pressure 124/54. General: No acute distress. Vitals as above. HEENT: Normocephalic, atraumatic. Mucous membranes are moist. No cervical adenopathy. Cardiovascular: Regular rate and rhythm. No murmurs, rubs or gallops. Pulmonary: Clear to auscultation bilaterally within limits of body habitus. Abdomen: Soft and nontender. Nondistended. Bowel sounds positive. Extremities: Peripheral pulses intact. Trace lower extremity edema unchanged. No clubbing or cyanosis. Neurological: Cranial nerves grossly intact. No focal deficits identified. Psychiatric: Normal mood and affect. Awake, alert and oriented x3. Skin: No new rashes or lesions identified. ASSESSMENT AND PLAN: 1. Upper GI bleed with acute posthemorrhagic anemia. The patient is with profoundly low hemoglobin on admission. Transfuse 4 units with improvement and relatively stable since then. EGD performed showed a large duodenal ulcer as well as gastritis. Continue PPI. Stable to go to the floor today. If H H continues to remain stable, may be able to go home within the next day or two. 2. Chronic kidney disease 5. Creatinine 4.1. Essentially at baseline. Nephrology following. 3. Chronically elevated troponin. EKG reviewed by cardiology. They do not feel that this represents ACS. Likely related to chronic kidney disease with some demand ischemia/type 2 MT secondary to profound anemia as above. 4. Diabetes mellitus. Reasonable control on current regimen. Will continue. 5. Hypothyroidism. Continue Synthroid. 6. Hypertension. Overall, blood pressure control is reasonable on current regimen. Will continue to monitor. 7. Morbid obesity. The patient was counselled on diet and exercise. 8. Likely chronic diastolic congestive heart failure. Chest x-ray similar to previous with slight interstitial edema. BNP is very slightly higher than previous, but not a marked major change. No signs of major volume overload at this time. Continue home Lasix and monitor. Last echo in December of 2017 was with normal EF, mild pulmonary hypertension and likely diastolic heart failure. 9. Deep vein thrombus prophylaxis. SCDs. [facility]
[2018-11-13] MEDS: PROTONIX IV SCH (17:09)
--- NOTE | 2018-11-13 18:33 | CONSULTATION ---
DATE OF CONSULTATION: 11/13/2018 IMPRESSION: 1. Slight elevation of troponin levels above normal range in setting of advanced kidney dysfunction. I suspect this is most likely related to his renal disorder as he has had no significant angina nor acute changes on ECG. 2. Atherosclerotic coronary disease with previous myocardial infarction reported in 2017. Patient was evaluated in [place] with what sounds like a noninvasive evaluation and was treated medically thereafter. He continues with infrequent chest discomfort. 3. Currently admitted with melena ongoing for over a month with a gastrointestinal evaluation demonstrating a duodenal ulcer. 4. Chronic kidney disease stage 4. 5. Type 2 diabetes mellitus. 6. Obesity. 7. Probable obstructive sleep apnea. 8. Hypertension. 9. Hyperlipidemia. RECOMMENDATIONS: 1. Continue medical management of patient's coronary atherosclerosis. 2. Continue statin therapy as well. 3. At some point in the future after healing of his duodenal ulcer and initiation of dialysis which appears to be becoming increasingly likely, reevaluation of his coronary disease would be prudent. Consideration might be given to at coronary angiography at that point which he probably has not yet had. However at present, therapeutic management of his coronary disease is limited by the presence of a duodenal ulcer and only medical management is appropriate at this time. 4. Will see patient further on an as needed basis. Please schedule cardiology followup on a routine basis in our office. HISTORY: This 83-year-old white male with past history of chronic kidney disease stage 4, obesity, diabetes mellitus, atherosclerotic coronary disease, hypertension, hyperlipidemia, was admitted with several months of melena. He was found to have significant anemia as well as acute on chronic kidney disease. He has been found to have a duodenal ulcer and is being treated this conservatively. He is also been found to have significant progression of his chronic kidney disease to point that dialysis might be a consideration in the near future. His lab work demonstrated a slight elevation in troponin above the normal range which did not rise nor fall but remained more or less the same. He has not had any recent chest pain although he does recall having some chest discomfort infrequently in the past that might be provoked by physical activities such as using his arms. He reportedly had a heart attack 2 years ago and was evaluated in [place] with what sounds like a extensive noninvasive evaluation. I suspect there was desire to avoid intravenous contrast. At any rate, he has been managed medically for suspected coronary atherosclerosis. PAST MEDICAL HISTORY: 1. Obesity. 2. Diabetes mellitus. 3. Hypertension. 4. Hyperlipidemia. 5. Chronic kidney disease stage 4. 6. Atherosclerotic coronary disease. 7. Prostate hypertrophy. PAST SURGICAL HISTORY: Includes cholecystectomy and repair of colorectal fistula. ALLERGIES: Allergic or intolerant to penicillin. MEDICATIONS PRIOR TO ADMISSION: As listed. SOCIAL HISTORY: He moved to [facility] from [place] approximately a year and a half ago. His daughter lives in the area and that is what brought him and his to this area. He does not smoke or use alcohol. FAMILY HISTORY: Negative for premature coronary disease. REVIEW OF SYSTEMS: Pulmonary: Noteworthy for snoring and daytime somnolence. Gastrointestinal: Noncontributory beyond history present illness. Constitutional: Noncontributory beyond history present illness. Remainder of review of systems negative/noncontributory beyond history of present illness with 14 total systems reviewed. PHYSICAL EXAMINATION: General: This is a morbidly obese, older white male in no distress. Vital signs: Blood pressure 128/51, heart rate 63, oxygen saturation 98%. HEENT: Extraocular movements intact. Mucous membranes are moist. Neck: Supple. Jugular distention cannot be discerned. Chest: Clear to auscultation bilaterally. Cardiac Exam: Reveals a regular rate and rhythm without appreciable murmur or gallop. Abdomen: Soft. Bowel sounds audible. Extremities: Demonstrate mild ankle edema bilaterally. Neurologic: Reveals him to be alert, fully oriented. Speech is fluent. Moves all 4 extremities equally well. Skin: Warm, dry. Psychiatric: Reveals mood to be appropriate. DATA: Twelve lead EKG demonstrates sinus rhythm with first degree AV block, left axis deviation and incomplete right bundle branch block. Cannot exclude previous anterior infarct of undetermined age. LABORATORY DATA: Includes a white blood cell count 11.67, hematocrit 23.9, hemoglobin 7.8, platelet count 224,000. Sodium 143, potassium 4.0, chloride 114, carbon dioxide 17, BUN 87, creatinine 4.1, glucose 131, initial troponin 0.127, followup troponin 0.114, initial CPK 93, albumin 3.0. cc: Shad Rm MD
[2018-11-13 18:59] LABS: HEMATOCRIT 23.6 % (42.0-52.0); HEMOGLOBIN 7.6 g/dL (14.0-18.0)
[2018-11-13] MEDS: LIPITOR PO SCH (20:44)
[2018-11-13] MEDS: ULTRAM PO PRN (22:47)
--- NOTE | 2018-11-14 01:08 | NEPHROLOGY PROGRESS NOTE ---
DATE: 11/13/2018 SUBJECTIVE: He is in the process of being transferred to the floor. He is complaining about pain associated with his transfer. No other new complaints. However. No shortness of breath, nausea, vomiting. OBJECTIVE: Blood pressure 124/54, heart rate 73, respirations 17, afebrile. Intake 1.7 L, output 2.7 L. General: Uncomfortable, but no acute distress. Skin: Warm and dry. HEENT: Conjunctivae are pink. Pupils are equal. Oropharynx is dry. Neck veins are not visible. Heart: Regular and distant. Lungs: Equal. No crackles. Abdomen: Obese, soft, nontender. Bowel sounds present. Extremities: With no edema, clubbing, or cyanosis. IMPRESSION: 1. Chronic kidney disease stage 4 to 5. At baseline. BUN is improving. 2. Elevated BUN related to his gastrointestinal bleeding. Electrolytes are acceptable. 3. Modest metabolic acidosis. His hemoglobin has fallen again to 7.8 but has been stable over the last 12 hours. Observe. cc: Chema Peters MD
[2018-11-14] MEDS: PROTONIX IV SCH ×2 (03:41→16:36)
[2018-11-14] MEDS: CARAFATE LIQUID PO SCH ×4 (03:41→22:10)
[2018-11-14] MEDS: SYNTHROID PO SCH (05:59)
[2018-11-14] MEDS: HUMULIN R SUBQ SCH ×4 (05:59→22:10)
[2018-11-14 09:32] LABS: ALBUMIN 2.9 g/dL (3.5-5.0); CALCIUM 8.6 mg/dL (8.8-10.2); CREATININE 4.5 mg/dL (0.7-1.2); PHOSPHORUS 4.9 mg/dL (2.7-4.5); POTASSIUM 4.1 mmol/L (3.5-5.1)
[2018-11-14 09:35] LABS: HEMATOCRIT 24.8 % (42.0-52.0); HEMOGLOBIN 7.9 g/dL (14.0-18.0)
[2018-11-14] MEDS: ULTRAM PO PRN (09:42)
[2018-11-14] MEDS: CENTRUM SILVER PO SCH (09:42)
[2018-11-14] MEDS: FLOMAX PO SCH (09:42)
[2018-11-14] MEDS: SODIUM BICARBONATE PO SCH ×2 (09:42→22:10)
[2018-11-14] MEDS: DITROPAN PO SCH ×2 (09:42→22:10)
[2018-11-14] MEDS: ICAR-C PO SCH ×2 (09:42→16:36)
[2018-11-14] MEDS: LASIX PO SCH (09:43)
[2018-11-14] MEDS: NORVASC PO SCH ×2 (09:55→22:10)
--- NOTE | 2018-11-14 12:59 | PROGRESS NOTE ---
DATE: 11/14/2018 SUBJECTIVE: The patient resting in bed. Not in any obvious distress. OBJECTIVE: Vital signs: Temperature 97.9 degrees, pulse 64, respirations 17, blood pressure 126/56, oxygen saturation is 97%. HEENT: Atraumatic ,normocephalic. Cardiovascular: S1, S2. Respiratory: Evidence of good air entry bilaterally. Abdomen: Soft, nontender. No masses felt. Extremities: Trace edema in the lower extremities. Central nervous system: No obvious focal deficits noted. DIAGNOSTIC STUDIES: Hematocrit 24.8. Sodium is 140, potassium 4.1, chloride 109, bicarbonate 17, BUN is 78, creatinine 4.5. ASSESSMENT AND PLAN: 1. Gastrointestinal (GI) bleed. Maintain patient on proton pump inhibitor. Follow up on hemoglobin and hematocrit. Transfuse packed red blood cells (PRBCs) as needed. Gastroenterology following. 2. Chronic kidney disease. Follow up on renal function. Avoid nephrotoxic agent. The patient's medication doses will need to be adjusted for renal function. Nephrology consulted. 3. Elevated troponin. Suspect that this may be related to chronic kidney disease with edema and with possible demand ischemia. Cardiology consulted. 4. Diabetes mellitus. Continue to monitor blood sugars and maintain patient on sliding scale insulin. 5. Hypothyroidism. Continue levothyroxine. 6. Deep vein thrombosis (DVT) prophylaxis. Sequential compression devices (SCDs). 7. Gastrointestinal (GI) prophylaxis. Patient is on proton pump inhibitor (PPI). cc: Fadi Acuña MD
[2018-11-14 18:05] LABS: HEMOGLOBIN 8.2 g/dL (14.0-18.0)
--- NOTE | 2018-11-14 18:11 | GASTROENTEROLOGY PROGRESS NOTE ---
DATE: 11/14/2018 SUBJECTIVE: He is feeling better. Nausea is improving. He said he did have a small amount of bright red blood in the stool, which later was but there are no signs of it. He is tolerating his diet and feeling better. OBJECTIVE: Vital Signs: Temp 97.9, pulse 64, respirations 17, blood pressure 126/56, O2 sat 97%. HEENT: Mild conjunctival pallor. Heart: Normal. Lungs: Normal. Abdomen: Soft, nontender. Extremities: Trace edema. LABORATORY: Hematocrit 25. IMPRESSION AND PLAN: 1. GI bleed from large duodenal ulcer. 2. Constipation and blood stained stool, small amount. 3. Chronic kidney disease. 4. Diabetes mellitus. 5. GI prophylaxis. 6. DVT prophylaxis only with sequential compression devices. He cannot have any blood thinners for several months. cc: Agustin Shanks MD MTDD
[2018-11-14] MEDS: LIPITOR PO SCH (22:10)
[2018-11-15] MEDS: CARAFATE LIQUID PO SCH ×4 (02:00→21:21)
[2018-11-15] MEDS: HUMULIN R SUBQ SCH ×4 (06:19→21:22)
[2018-11-15] MEDS: SYNTHROID PO SCH (06:19)
[2018-11-15] MEDS: PROTONIX IV SCH ×2 (06:19→17:57)
[2018-11-15 08:14] LABS: HEMATOCRIT 24.7 % (42.0-52.0); HEMOGLOBIN 7.9 g/dL (14.0-18.0)
[2018-11-15 08:36] LABS: ALBUMIN 2.9 g/dL (3.5-5.0); CALCIUM 8.6 mg/dL (8.8-10.2); CREATININE 4.6 mg/dL (0.7-1.2); PHOSPHORUS 5.7 mg/dL (2.7-4.5); POTASSIUM 4.4 mmol/L (3.5-5.1)
[2018-11-15] MEDS: CENTRUM SILVER PO SCH (09:13)
[2018-11-15] MEDS: SODIUM BICARBONATE PO SCH ×2 (09:13→21:21)
[2018-11-15] MEDS: ICAR-C PO SCH ×2 (09:14→16:19)
[2018-11-15] MEDS: LASIX PO SCH (09:14)
[2018-11-15] MEDS: FLOMAX PO SCH (09:14)
[2018-11-15] MEDS: DITROPAN PO SCH ×2 (09:14→21:23)
[2018-11-15] MEDS: NORVASC PO SCH ×2 (09:14→21:21)
--- NOTE | 2018-11-15 10:33 | PROGRESS NOTE ---
DATE: 11/15/2018 SUBJECTIVE: The patient resting in bed. Not in any obvious distress. OBJECTIVE: Vital signs: Temperature 97.4 degrees, pulse 89, respiratory rate 20, blood pressure 152/73, oxygen saturation is 96%. HEENT: He is atraumatic, normocephalic. Cardiovascular: S1, S2. Respiratory: Has evidence of good entry bilaterally. Abdomen: Soft, nontender. No masses felt. Extremities: No evidence of significant edema. Central nervous system: No obvious focal deficits noted. LABS: Hematocrit is 24.7. Sodium is 140, potassium 4.4, chloride is 108, bicarb 14, BUN is 77, creatinine 4.1. ASSESSMENT AND PLAN: 1. Gastrointestinal bleed. Maintain patient on proton-pump inhibitor. Follow up on hemoglobin, hematocrit. Transfuse PRBCs as needed. Gastrointestinal is following. 2. Chronic kidney disease. Follow up on renal function. Avoid nephrotoxic agents. Nephrology consulted. 3. Elevated troponin. Suspect this may be related to chronic kidney disease and possibly does not have any cardiac significance. Cardiology consulted. 4. Diabetes mellitus. Monitor blood sugar levels. Maintain patient on sliding scale insulin. 5. Hypothyroidism. Continue on levothyroxine. 6. Deep vein thrombosis prophylaxis. Sequential compression devices. 7. Gastrointestinal prophylaxis. The patient is a PPI. cc: Fadi Acuña MD
[2018-11-15] MEDS ORDERED: NS 250 ML ONE (10:44)
--- NOTE | 2018-11-15 11:30 | GASTROENTEROLOGY PROGRESS NOTE ---
DATE: 11/15/2018 SUBJECTIVE: He is resting in bed. He denies any rectal bleeding. He is feeling better. He denies any nausea, vomiting, or vomiting blood. OBJECTIVE: Vital Signs: Temperature 97.4, pulse of 89, respirations 20, blood pressure 152/72, saturating 96% on room air. Body weight of 316 pounds 6 ounces. BMI of 49.6. General: The patient is morbidly obese lying in bed in no acute distress. HEENT: Pale conjunctivae. No icterus. Neck is supple. Abdomen is morbidly obese, soft, nontender, nondistended. No guarding. Extremities: No cyanosis or clubbing. Neurologic: Alert, awake, oriented. LABORATORY DATA: Hemoglobin and hematocrit is 7.9 and 24.7, white count of 140, potassium 4.4, chloride 100, bicarb 14, anion of 18. BUN of 77, creatinine 4.6, glucose of 127. Calcium is 8.6. Phosphorus 5.7, albumin of 2.9. Stool for occult blood was positive on admission. IMPRESSION AND PLAN: 1. Gastrointestinal bleed secondary to duodenal ulcer. Continue Protonix b.i.d. and Carafate 1 g q 6 hours. He will need a repeat esophagogastroduodenoscopy in 3 months to document healing. 2. Anemia. He will benefit from IV iron infusion. We will discuss that with the primary care team. 3. Morbid obesity. Patient counseled to lose weight. 4. Chronic kidney disease. It may be anemia of chronic disease. 5. Diabetes mellitus, aware. Being managed by the primary care team. 6. Constipation. We will give him a bowel regimen. 7. Deep venous thrombosis prophylaxis; sequential compression devices. We will start him on MiraLAX twice daily for constipation and Dulcolax twice daily. Above plan of care discussed with the patient and all questions were answered. Please call us with any further questions. cc: Hank Gay MD
--- NOTE | 2018-11-15 15:42 | NEPHROLOGY PROGRESS NOTE ---
DATE: 11/15/2018 DATE AND TIME SEEN: 11/15/2018 at 0755. SUBJECTIVE: Mr. Bourgeois is resting quietly in bed. He states that he is feeling just a little bit better. Denies chest pain or increased work of breathing. OBJECTIVE: His most recent vital signs: His last temperature 97.4, blood pressure 152/73, heart rate 89, respirations 20. He is on room air. Last recorded saturation is 96%. He has had 0 recorded in. He has had 2400 out. LABORATORY DATA: Sodium is 140, potassium 4.4, chloride is 108, CO2 of 14. BUN 77, creatinine 4.6, glucose of 127. Previous hemoglobin 7.9, hematocrit is 24.7. PHYSICAL EXAMINATION: General: This is an 83-year-old elderly male who is currently resting quietly in bed. He appears in no acute distress. Skin is warm and dry. HEENT: Normocephalic, atraumatic. Conjunctivae pale pink. He has THI. Mucous membranes are dry. Neck is supple. Trachea midline. No evidence of JVD. Cardiovascular: He is regular rate and rhythm. He is without murmur or gallop. Lungs clear to auscultation bilaterally. Equal excursion on room air. Abdomen is soft, large, round nontender. Positive bowel sounds. Genitourinary: Not inspected. Adequate urine out recorded. Extremities have 1+ edema. No clubbing or cyanosis. Neurologic: He is awake to person and to place. ASSESSMENT AND PLAN: 1. Chronic kidney disease, stage 4 or 5. The patient remains at his baseline with a BUN improving, now down to 77. 2. Electrolytes. These are acceptable. 3. Acidosis. We will continue to monitor and follow. 4. Gastrointestinal bleed. This is currently being followed by Dr. Shanks. It is noted that he has a large duodenal ulcer. I would like to thank you for allowing us to follow with this patient. Dictated by MIGEL Perez for Chema Peters MD Face to face encounter, data reviewed, discussed with Monica Smith on 11/15/18. I agree with the above assessment and plan of care. cc: MIGEL Perez MD [facility]
[2018-11-15] MEDS: LIPITOR PO SCH (21:22)
[2018-11-15] MEDS: DULCOLAX PR SCH (21:26)
[2018-11-15] MEDS: MIRALAX PO SCH (21:26)
[2018-11-16] MEDS: CARAFATE LIQUID PO SCH ×4 (02:30→20:29)
[2018-11-16 05:43] LABS: BASO# 0.02 X1000 (0.0-0.2); BASO% 0.2 % (0.0-0.8); EOS# 0.56 X1000 (0.0-0.7); EOS% 5.3 % (0.0-10.0); HEMOGLOBIN 8.5 g/dL (14.0-18.0); LYMPH# 2.55 X1000 (1.2-3.4); MCH 29.4 PG (27-31); MCHC 32.7 g/dL (33-37); MONO% 7.5 % (1.7-9.3); MPV 9.7 FL (7.4-10.4); PLT 214 X1000 (130-400); RBC 2.89 XMIL (4.7-6.1); RDW 14.4 % (11.5-14.5); WBC 10.63 X1000 (4.8-10.8)
[2018-11-16 06:12] LABS: ALBUMIN 2.4 g/dL (3.5-5.0); CALCIUM 8.4 mg/dL (8.8-10.2); CREATININE 4.3 mg/dL (0.7-1.2); PHOSPHORUS 5.2 mg/dL (2.7-4.5); POTASSIUM 3.8 mmol/L (3.5-5.1)
[2018-11-16] MEDS: PROTONIX IV SCH ×2 (06:19→17:07)
[2018-11-16] MEDS: SYNTHROID PO SCH (06:19)
[2018-11-16] MEDS: HUMULIN R SUBQ SCH ×4 (06:19→20:41)
[2018-11-16] MEDS: MIRALAX PO SCH ×2 (08:53→20:29)
[2018-11-16] MEDS: DITROPAN PO SCH ×2 (08:54→20:29)
[2018-11-16] MEDS: DULCOLAX PR SCH ×2 (08:54→20:29)
[2018-11-16] MEDS: LASIX PO SCH (08:54)
[2018-11-16] MEDS: FLOMAX PO SCH (08:54)
[2018-11-16] MEDS: CENTRUM SILVER PO SCH (08:54)
[2018-11-16] MEDS: SODIUM BICARBONATE PO SCH ×2 (08:54→20:29)
[2018-11-16] MEDS: ICAR-C PO SCH ×2 (08:54→17:07)
[2018-11-16] MEDS: NORVASC PO SCH ×2 (08:55→20:29)
[2018-11-16] MEDS: VENOFER 200 MG in NS 150 ML IV SCH (14:46)
--- NOTE | 2018-11-16 15:34 | NEPHROLOGY PROGRESS NOTE ---
DATE: 11/16/2018 DATE AND TIME SEEN: 11/16/2018 at 0840 hours. SUBJECTIVE: Mr. Bourgeois is resting quietly in bed. Head of the bed is elevated. He states that he is hungry, though he does not care for what they have brought up this morning. OBJECTIVE: VITAL SIGNS: Temperature 98.1 degrees, blood pressure 129/69, heart rate is 70 , respirations are 20, currently on room air. Last recorded saturation 98% with 820 in and 2000 out to Martinez catheter. PHYSICAL EXAMINATION: General: This is an 83-year-old elderly male. He is currently resting in bed. He appears in no acute distress. Skin: Warm and dry. HEENT: Normocephalic, atraumatic. Conjunctiva is pale. He has THI. Mucous membranes are dry. Neck: No evidence of JVD. Cardiovascular: Regular rate and rhythm without murmur or gallop. Lungs: Clear to auscultation bilaterally. Equal excursion on room air. Abdomen: Obese, soft, large, nontender. Positive bowel sounds. Genitourinary: Not inspected. Adequate urine out has been recorded to Martinez catheter. Extremities: Continues with 1+ edema. No clubbing or cyanosis. Neurological: Alert and oriented to person and to place. LABS: Sodium 138, potassium 3.8, chloride 106, CO2 16, BUN 78, creatinine 4.3, glucose 137. Anion gap is 16, calcium 8.4, phosphorus 5.2, albumin 2.4. White count 10.6, hemoglobin 8.5, hematocrit 26, platelet count 214. ASSESSMENT AND PLAN: 1. Chronic kidney disease stage IV-V. The patient's BUN and creatinine remain fairly stable at 4.3. He has had adequate urine out. No indications for intervention. 2. Electrolytes and acid-base balance. Patient remains acidotic. His CO2 is slightly improved from yesterday at 16. We will continue to monitor. 3. Anemia. This is low, but stable. 4. Gastrointestinal bleed followed by Dr. Shanks. I would like to thank you for allowing us to follow with this patient. Dictated by MIGEL Perez for Chema Peters MD Face to face encounter, data reviewed, discussed with Monica Smith on 11/17/18. I agree with the above assessment and plan of care. cc: MIGEL Perez MD MTDD
--- NOTE | 2018-11-16 18:28 | GASTROENTEROLOGY PROGRESS NOTE ---
DATE: 11/16/2018 SUBJECTIVE: No acute overnight events. The patient denies nausea, vomiting, fevers, chest pain, SOB, abdominal pain. Patient had BM. He is not sure if there was blood. Transfuse 1 unit pRBC yesterday OBJECTIVE: Vital Signs: T 98.3, HR 82, RR 19, BP 119/83, O2 sat 96% on RA GEN: awake, alert, NAD HEENT: Sclerae anicteric. Moist mucous membranes. Neck: No JVD. No lymphadenopathy Cardiac: Regular rate and rhythm, no murmurs. Lungs: CTAB, no wheezing or crackles Abdomen: soft, NT/ND, NABS, no rebound or guarding Extremities: No clubbing, cyanosis or edema. Neurologic: Nonfocal Psychiatric: Normal affect. LABORATORY DATA: CO2 16 BUN 78 Cr 4.3 Hbg 8.5 from 7.9 after 1 unit pRBC ASSESSMENT AND PLAN: Mr. Brennen Bourgeois is a 83 year old man who presents with acute on chronic GI blood loss found to have a large duodenal bulb ulcer s/p epinephrine and cautery. He was transfused yesterday with appropriate bump in hgb. He has significant metabolic acidosis likely from his CKD. Renal following #UGIB: from bleeding DU in setting of chronic ASA use - transition PPI IV to PO BID, continue for 3 months - stop carafate - check H pylori serology; if positive, treat empirically with triple therapy - no indication for repeat EGD given DUs no malignant potential #Anemia: - on iron replacement therapy - check H/H daily, transfusion goal 7-8 - will need hgb followed as outpatient #Metabolic acidosis: on sodium bicarb; renal following #CKD: good UOP: renal following #HTN: at goal; on BP meds Will sign off. Please call with questions or concerns. [facility]
--- NOTE | 2018-11-16 18:53 | PROGRESS NOTE ---
DATE: 11/16/2018 SUBJECTIVE: The patient is resting comfortable. According to his daughter he has been having ankle pain whenever he tries to stand. OBJECTIVE: Vital Signs: Temperature 98.3 degrees, blood pressure 130/48, heart rate 71, respirations 18, O2 saturation 99% on room air. General: This is a morbidly obese male lying in bed in no acute distress. Heart: S1, S2 normal. Lungs: Clear to auscultation bilaterally. Abdomen: Positive bowel sounds, soft, obese, nontender. Extremities: Trace pedal edema. Neuro: The patient is lethargic today but will awaken when his name is called. LABS: Hemoglobin 8.5, hematocrit 26, platelets 214,000, sodium 138, potassium 3.8, chloride 106, CO2 16, BUN 78, creatinine 4.3, glucose 219. ASSESSMENT AND PLAN: 1. Gastrointestinal bleed secondary to a large duodenal bulb ulcer with visible vessel status post cauterization and epinephrine. The patient received blood yesterday, continue to monitor the hemoglobin and hematocrit closely. The patient is on Protonix. 2. Chronic kidney disease stage 4. Stable. 3. Morbid obesity aware. 4. Iron deficiency anemia. The patient is on iron supplementation. 5. Metabolic acidosis. Continue sodium bicarbonate tablets. 6. Diabetes mellitus type 2. Continue on sliding scale insulin. 7. Deconditioning. Will consult OT and physical therapy. The patient will likely need inpatient rehab placement. 8. Benign prostatic hypertrophy. Continue on Flomax. 9. Hypothyroidism. Continue on Synthroid. cc: Jailene Mcgraw MD MTDD
[2018-11-16] MEDS: LIPITOR PO SCH (20:29)
[2018-11-17] MEDS: HUMULIN R SUBQ SCH ×4 (06:21→21:02)
[2018-11-17] MEDS: SYNTHROID PO SCH (06:40)
[2018-11-17 07:51] LABS: BASO# 0.03 X1000 (0.0-0.2); BASO% 0.3 % (0.0-0.8); EOS# 0.52 X1000 (0.0-0.7); EOS% 4.9 % (0.0-10.0); HEMATOCRIT 28.2 % (42.0-52.0); HEMOGLOBIN 9.1 g/dL (14.0-18.0); LYMPH# 2.37 X1000 (1.2-3.4); LYMPH% 22.3 % (20.5-51.1); MCH 29.4 PG (27-31); MCHC 32.3 g/dL (33-37); MONO# 0.84 X1000 (0.11-0.59); MONO% 7.9 % (1.7-9.3); MPV 9.9 FL (7.4-10.4); NEUT# 6.87 X1000 (1.4-6.5); NEUT% 64.6 % (42.2-75.2); PLT 239 X1000 (130-400); RDW 14.6 % (11.5-14.5); WBC 10.63 X1000 (4.8-10.8)
[2018-11-17 08:22] LABS: ALBUMIN 2.8 g/dL (3.5-5.0); CALCIUM 8.7 mg/dL (8.8-10.2); CREATININE 5.2 mg/dL (0.7-1.2); PHOSPHORUS 4.3 mg/dL (2.7-4.5); POTASSIUM 3.8 mmol/L (3.5-5.1)
--- NOTE | 2018-11-17 08:30 | NEPHROLOGY PROGRESS NOTE ---
DATE: 11/17/2018 TIME SEEN: 0655. SUBJECTIVE: Mr. Bourgeois is resting quietly in bed. Head of the bed is elevated. He states that he is just not feeling well. He is uncomfortable sitting up in bed. OBJECTIVE: Vital Signs: His most recent vital signs, temperature 98.4 degrees , blood pressure 117/51, heart rate 65, respirations 21. He is on room air. Last recorded saturation 98%. He has had 360 in, 1600 out. Labs: Are currently pending this a.m. Previous potassium 3.8 with a previous BUN of 78 and a creatinine of 4.3. Previous hemoglobin 8.5. Physical Examination: General: This is an 83-year-old, elderly gentleman. He is currently resting in bed. He is in no acute distress, though uncomfortable sitting up on the bed on a bedpan in bed. Skin: Warm and dry. HEENT: Normocephalic, atraumatic. Conjunctivae pale. He has THI. Mucous membranes dry. Neck: Supple. Trachea midline. No JVD. Cardiovascular: He is regular rate and rhythm. He is without murmur or gallop. Lungs: Clear to auscultation bilaterally. Equal excursion, on room air. Abdomen: Obese, soft, nontender. Positive bowel sounds. Genitourinary: Not inspected. Adequate urine out recorded to the Martinez catheter. Extremities: Continues with 1+ edema. No clubbing or cyanosis. Neurological: Alert and oriented x2. ASSESSMENT AND PLAN: 1. Chronic kidney disease stage 4. Patient's BUN and creatinine have remained stable. Labs are currently pending this morning. He has adequate urine output. No indications for intervention. 2. Electrolytes, acid-base balance. These are currently pending. 3. Anemia. This is low but stable. 4. Gastrointestinal bleed. Followed by gastroenterology and primary care. I would like to thank you for allowing us to follow with this patient. Dictated by MIGEL Perez for Chema Peters MD Face to face encounter, data reviewed, discussed with Monica Smith on 11/17/18. I agree with the above assessment and plan of care. cc: MIGEL Perez MD [facility]
[2018-11-17] MEDS: CENTRUM SILVER PO SCH (09:45)
[2018-11-17] MEDS: ICAR-C PO SCH ×2 (09:45→16:48)
[2018-11-17] MEDS: SODIUM BICARBONATE PO SCH ×2 (09:45→21:01)
[2018-11-17] MEDS: LASIX PO SCH (09:46)
[2018-11-17] MEDS: NORVASC PO SCH ×2 (09:46→21:01)
[2018-11-17] MEDS: PROTONIX PO SCH ×2 (09:46→21:01)
[2018-11-17] MEDS: DITROPAN PO SCH ×2 (09:46→21:01)
[2018-11-17] MEDS: FLOMAX PO SCH (09:46)
[2018-11-17] MEDS: MIRALAX PO SCH ×2 (09:47→21:02)
[2018-11-17] MEDS: DULCOLAX PR SCH ×2 (09:47→21:02)
[2018-11-17] MEDS: VENOFER 200 MG in NS 150 ML IV SCH (09:48)
[2018-11-17] MEDS: TYLENOL PO PRN ×2 (10:16→19:05)
--- NOTE | 2018-11-17 15:49 | PROGRESS NOTE ---
DATE: 11/17/2018 SUBJECTIVE: The patient is resting comfortably in bed. He refused to work with physical therapy yesterday. OBJECTIVE: Vital Signs: Temperature 97.6 degrees, blood pressure 112/83, heart rate 71, respirations 20, O2 saturation is 98% on room air. Urine output 1.6 L. General: This is a chronically ill-appearing, morbidly obese male lying in bed, in no acute distress. Head: Normocephalic, atraumatic. Heart: S1, S2 normal. Regular rate and rhythm. Lungs: Clear to auscultation bilaterally. No wheezing. No rales. Abdomen: Positive bowel sounds. Soft, obese, nontender, nondistended. Extremities: Trace pedal edema. No cyanosis. No calf tenderness. Neurologic: The patient is alert and oriented x3. LABS: White blood cell count 10, hemoglobin 9.1, hematocrit 28, platelets 239,000. Sodium 139, potassium 3.8, chloride 106, CO2 17, BUN 69, creatinine 5.2, glucose 132, albumin 2.8. ASSESSMENT AND PLAN: 1. Gastrointestinal bleed secondary to a large duodenal ulcer, status post cauterization and epinephrine injection. The patient's hemoglobin and hematocrit are stable. Continue on Protonix. 2. Chronic kidney disease stage 4/5. The patient's creatinine is 5.2 today. We will continue to monitor this closely. Nephrology is following. 3. Morbid obesity. Aware. 4. Iron deficiency anemia. Continue with IV iron infusions. 5. Metabolic acidosis. Stable. Continue on sodium bicarbonate tablets. 6. Diabetes mellitus type 2. Continue on sliding scale insulin. 7. Benign prostatic hypertrophy. Continue on Flomax. 8. Hypothyroidism. Continue on Synthroid. 9. Deconditioning. [facility] has been consulted for inpatient rehab placement for the patient. Continue with physical therapy. cc: Jailene Mcgraw MD
[2018-11-17 16:39] LABS: ALBUMIN 2.7 g/dL (3.5-5.0); CALCIUM 8.7 mg/dL (8.8-10.2); PHOSPHORUS 4.4 mg/dL (2.7-4.5)
[2018-11-17] MEDS: LIPITOR PO SCH (21:01)
[2018-11-18] MEDS: TYLENOL PO PRN (01:06)
[2018-11-18] MEDS: SYNTHROID PO SCH (06:24)
[2018-11-18] MEDS: HUMULIN R SUBQ SCH ×2 (06:25→11:54)
[2018-11-18 08:17] LABS: BASO# 0.06 X1000 (0.0-0.2); BASO% 0.6 % (0.0-0.8); EOS# 0.57 X1000 (0.0-0.7); EOS% 5.7 % (0.0-10.0); HEMATOCRIT 27.5 % (42.0-52.0); HEMOGLOBIN 8.9 g/dL (14.0-18.0); IMM GRAN# 0.02 X1000 (0.0-0.04); IMM GRAN% 0.2 % (0.0-0.5); LYMPH# 2.43 X1000 (1.2-3.4); LYMPH% 24.2 % (20.5-51.1); MCH 29.5 PG (27-31); MCHC 32.4 g/dL (33-37); MCV 91.1 FL (81-99); MONO# 0.61 X1000 (0.11-0.59); MONO% 6.1 % (1.7-9.3); MPV 9.8 FL (7.4-10.4); NEUT# 6.36 X1000 (1.4-6.5); NEUT% 63.2 % (42.2-75.2); PLT 243 X1000 (130-400); RBC 3.02 XMIL (4.7-6.1); RDW 14.6 % (11.5-14.5); WBC 10.05 X1000 (4.8-10.8)
[2018-11-18 08:33] VITALS: BP 124/84
[2018-11-18 08:55] LABS: ALBUMIN 2.7 g/dL (3.5-5.0); CALCIUM 8.5 mg/dL (8.8-10.2); CREATININE 5.1 mg/dL (0.7-1.2); PHOSPHORUS 4.5 mg/dL (2.7-4.5); POTASSIUM 3.7 mmol/L (3.5-5.1)
[2018-11-18] MEDS: LASIX PO SCH (09:59)
[2018-11-18] MEDS: VENOFER 200 MG in NS 150 ML IV SCH (09:59)
[2018-11-18] MEDS: SODIUM BICARBONATE PO SCH (09:59)
[2018-11-18] MEDS: NORVASC PO SCH (09:59)
[2018-11-18] MEDS: CENTRUM SILVER PO SCH (09:59)
[2018-11-18] MEDS: FLOMAX PO SCH (09:59)
[2018-11-18] MEDS: DITROPAN PO SCH (09:59)
[2018-11-18] MEDS: PROTONIX PO SCH (09:59)
[2018-11-18] MEDS: ICAR-C PO SCH (09:59)
[2018-11-18] MEDS: DULCOLAX PR SCH (10:05)
[2018-11-18] MEDS: MIRALAX PO SCH (10:06)
--- NOTE | 2018-11-18 12:10 | GASTROENTEROLOGY PROGRESS NOTE ---
DATE: 11/18/2018 SUBJECTIVE: He is resting in bed. He is feeling better. Denies any nausea/vomiting, vomiting blood, or passing blood in the stools. His blood counts are improving. OBJECTIVE: Vitals: Temperature of 97.9 degrees, pulse rate of 82, respiratory rate of 16, blood pressure 124/84, saturating 98% on room air. Weight: Body weight of 314 pounds 5 ounces with BMI of 49.2 kg/m2. Abdomen: Morbidly obese. General: Lying in bed, in no acute distress. HEENT: Pale conjunctivae. No icterus. Neck: Supple. Abdomen: Obese, soft, nontender, nondistended. No guarding or rebound. Extremities: No cyanosis, clubbing. Neurologic: Alert, awake, oriented x3. DIAGNOSTIC STUDIES: His hemoglobin is 8.9, hematocrit 27.4, white count of 10.05, platelet count of 243,000. Sodium 140, potassium 3.7, chloride 107, bicarbonate of 79, anion gap 16, BUN of 67, creatinine 5.1, glucose of 146, calcium is 8.5, albumin of 2.7. IMPRESSION AND PLAN: 1. Duodenal ulcer status post cautery. He will continue on Protonix twice daily for 3 months. He will continue on Carafate 1 g 6 hours for 6 weeks. 2. Anemia. He will continue iron C b.i.d. for 3 months and multivitamin once daily for 3 months. 3. Chronic kidney disease. He is to continue follow with Nephrology. 4. Morbid obesity. Patient counseled to lose weight. 5. The patient will follow up in clinic in 3 months of discharge. At that time, we will plan for EGD and colonoscopy if he persists to be anemic and based on his overall clinical status. 6. Type 2 diabetes. On sliding scale insulin. 7. BPH. On Flomax. 8. Hypothyroidism. He is on Synthroid. 9. Deconditioning. He is being reviewed for inpatient rehabilitation placement. He will continue physical therapy. The above plan was discussed with the patient, and all questions were answered. cc: MD Jailene Pimentel MD
--- NOTE | 2018-11-18 13:46 | DISCHARGE SUMMARY ---
ADMISSION DATE: 11/10/2018 DISCHARGE DATE: 11/18/2018 FINAL DISCHARGE DIAGNOSES: 1. Gastrointestinal bleed secondary to a large duodenal bulb ulcer status post cauterization and epinephrine injection. 2. Chronic kidney disease stage 4/5. 3. Morbid obesity. 4. Iron deficiency anemia. 5. Metabolic acidosis. 6. Diabetes mellitus type 2. 7. BPH. 8. Hypothyroidism. 9. Hypertension. CONSULTATIONS REQUESTED DURING THIS HOSPITAL STAY: 1. Gastroenterology consultation with Dr. Gay. 2. Nephrology consultation with Dr. Peters. PROCEDURES: EGD performed on 11/11/2018, which revealed a large duodenal bulb ulcer on the anterior wall with a visible vessel. Treated with epinephrine and cauterization. HOSPITAL COURSE: Mr. Bourgeois is an 83-year-old male with a history of morbid obesity, chronic kidney disease, hypertension, and BPH, who presented to the ER with a GI bleed. On admission, a CT of the abdomen and pelvis was done that revealed severe diverticulosis, but no acute other acute process was seen. The patient's hemoglobin and hematocrit on admission were noted to be 4.4 and 14, respectively. Gastroenterology was consulted as well. The patient was also noted to have a BUN of 139 and a creatinine of 4. As a result, Nephrology was consulted. The patient was treated with gentle IV fluid hydration initially, which resulted in improvement in the patient's renal function. IV fluids were then discontinued, and the patient was started back on oral Lasix. The patient was taken for EGD on 11/11/2018, at which time it was discovered that the patient had a large duodenal bulb ulcer on the anterior wall with a visible vessel. During the procedure, the patient received epinephrine and cauterization of the area. The patient did require several blood transfusions following the procedure. The hemoglobin and hematocrit were noted to be stable. The patient was also given 3 days of IV Venofer infusions. The patient's renal function eventually stabilized, and his hemoglobin and hematocrit are stable as well. Today, the hemoglobin is 8.9 with hematocrit of 27. The patient has been advised to continue with iron supplementation as ordered. The patient is scheduled to follow up with Dr. Peters on 11/23/2018. The patient will also follow up with Dr. Gay in about 2 weeks upon discharge from inpatient rehabilitation. Physical Therapy was consulted, and the patient was barely able to participate, but is agreeable to going to inpatient rehabilitation for treatment. The patient is currently stable for discharge to inpatient rehabilitation. DISCHARGE MEDICATIONS: 1. Icar C 1 tablet oral twice a day. 2. Ditropan 5 mg p.o. twice a day. 3. Protonix 40 mg p.o. twice a day. 4. MiraLAX 17 g oral twice a day. 5. Sodium bicarbonate 1300 mg oral twice a day. 6. Ultram 50 mg p.o. every 6 hours p.r.n. for pain. 7. Dulcolax 10 mg per rectum twice a day p.r.n. 8. Lipitor 20 mg p.o. daily. 9. Lasix 40 mg p.o. daily. 10. Synthroid 50 mcg oral daily. 11. Flomax 0.4 mg oral daily. 12. Norvasc 5 mg p.o. twice a day. 13. NPH 20 units subcutaneous twice a day. DISCHARGE DIET: 1800 ADA diet. ACTIVITY: As tolerated. FOLLOW-UP INSTRUCTIONS: The patient will need to follow up with Dr. Peters on 11/23/2018 as scheduled. The patient will need to follow up with Dr. Gay in 3 months. cc: Jailene Mcgraw MD MTDD
--- NOTE | 2018-11-18 14:10 | NEPHROLOGY PROGRESS NOTE ---
DATE: 11/18/2018 DATE AND TIME SEEN: 11/18/2018 at 0635 hours. SUBJECTIVE: Mr. Bourgeois is resting in bed. He is awake and alert. States that he is not well today. He is just exhausted. Does not sleep well. OBJECTIVE: His most recent vital signs: Temperature 98.6 degrees, blood pressure 147/51, heart rate is 71, respirations are 20. He has had 238 in; he has had 1100 out. He is on room air. Last recorded saturation is 94%. General: This is an 83-year-old white male resting quietly in bed. Head of the bed is elevated. No acute distress. Skin: Warm and dry. HEENT: Normocephalic, atraumatic. Conjunctivae pale. He has THI. Mucous membranes are dry. Neck: Supple. Trachea midline. Positive JVD. Cardiovascular: Regular rate and rhythm. He has a gallop present. Lungs: Clear to auscultation bilateral. Diminished breath sounds. He remains on room air. Abdomen: Large, obese, distended. Positive bowel sounds present. Genitourinary: Not inspected. Patient has been voiding. Extremities: The patient has no edema. No clubbing or cyanosis. Neurological: Alert and oriented x2. LABS: His sodium is 140, potassium 3.7, chloride 107, CO2 17. BUN 67, creatinine 5.1, glucose 123. The patient has an anion gap of 16, calcium 8.5, phosphorus 4.5, albumin 2.7. White count 10.05, hemoglobin 8.9, hematocrit 27.5 with a platelet count of 243. ASSESSMENT AND PLAN: 1. Chronic kidney disease stage IV. Creatinine in stable range of 4.3 to 5 over the last 72 hours. We have encouraged him to increase his oral intake. Otherwise, may need to start intravenous fluids on him. We have encouraged at least 2.5 liters today. 2. Electrolytes and acid-base balance. The patient has metabolic acidosis. He continues on sodium bicarbonate 1300 mg oral twice daily. 3. Anemia. This is low, but stable. 4. Gastrointestinal bleed. This is followed by the primary care. I would like to thank you for allowing us to follow with this patient. [id number] encounter. Data reviewed and discussed with Flora Smith. I agree with the above assessment and plan of care. RG Dictated by MIGEL Perez for Chema Peters MD cc: MIGEL Perez MD [facility]
== END 2018-11-18 17:36 | DRG 378 ==
LOC: SUPCPDRO → ED 11:09 → EDIPHOLD 17:06 → SUATTDRO 17:06 → ICU 20:15 → 3N 11-13 12:25
PROVIDERS: ATTEND Internal Medicine
PROC: EN.HEAT (2018-11-11 09:20)
CPT/HCPCS: 36430; 51702; 71010; 71045; 74176; 80048; 80053; 80069; 81001; 82270; 82550; 82570; 82607; 82728; 82746; 82948; 83540; 83550; 83605; 83735; 83880; 84156; 84300; 84484; 85014; 85018; 85025; 85610; 85730; 86850; 86900; 86901; 86920; 87275; 87276; 87804; 93005; 93010; 93306; 94761; 94799; 96372; 96374; 96375; 97162; 97530; 99285; A9270; C8929; C9113; J0171; J0696; J1200; J1756; J1940; J2405; J7050; P9016; Q9957; S0164; XXXXX

== ENCOUNTER 2020-01-24 12:24 | Inpatient (IN) ==
--- NOTE | 2020-01-24 13:18 | EKG Report ---
Test Performed on : 01/24/2020 12:37:27 PM Test Reason : sob, cough Blood Pressure : / mmHG Vent. Rate : 064 BPM Atrial Rate : 064 BPM P-R Int : 000 ms QRS Dur : 130 ms QT Int : 458 ms P-R-T Axes : 000 -33 -07 degrees QTc Int : 472 ms Wide QRS rhythm. with occasional premature ventricular complexes. Left axis deviation Right bundle branch block Inferior infarct , age undetermined Anterior infarct , age undetermined Abnormal ECG When compared with ECG of 23-DEC-2019 16:21, (Unconfirmed) Wide QRS rhythm. has replaced Sinus rhythm. Unconfirmed Result
[2020-01-24 13:31] LABS: BASO# 0.02 X1000 (0.0-0.2); BASO% 0.2 % (0.0-0.8); EOS% 1.8 % (0.0-10.0); HEMATOCRIT 22.5 % (42.0-52.0); HEMOGLOBIN 7.2 g/dL (14.0-18.0); IMM GRAN# 0.04 X1000 (0.0-0.04); IMM GRAN% 0.4 % (0.0-0.5); LYMPH# 1.58 X1000 (1.2-3.4); LYMPH% 14.3 % (20.5-51.1); MCH 31.7 PG (27-31); MCV 99.1 FL (81-99); MONO# 0.71 X1000 (0.11-0.59); MONO% 6.4 % (1.7-9.3); MPV 8.9 FL (7.4-10.4); NEUT# 8.51 X1000 (1.4-6.5); NEUT% 76.9 % (42.2-75.2); PLT 241 X1000 (130-400); RBC 2.27 XMIL (4.7-6.1); RDW 13.7 % (11.5-14.5); WBC 11.06 X1000 (4.8-10.8)
--- NOTE | 2020-01-24 13:34 | Diag Imaging Result Doc PS360 ---
CHEST-1 VIEW - 01/24/2020 INDICATION: cough COMPARISON: 12/25/2019 FINDINGS: Stable right-sided dialysis catheter. Stable cardiomegaly and pulmonary vascular congestion. There is grossly stable extensive pulmonary edema/volume overload. No large pleural effusion. IMPRESSION: Pulmonary edema/volume overload. No significant change from prior. Electronically signed by Peter Seymour 01/24/2020 1:32 PM
[2020-01-24 13:35] LABS: INR 1.06; PROTIME 13.9 Seconds (11.0-16.0)
[2020-01-24 13:36] LABS: PTT 37.9 Seconds (22.3-41.8)
[2020-01-24 13:44] LABS: ALB/GLOB RATIO 0.9; CALCIUM 8.8 mg/dL (8.8-10.2); CREATININE 5.4 mg/dL (0.7-1.2); POTASSIUM 5.5 mmol/L (3.5-5.1); TOTAL BILIRUBIN 0.25 mg/dL (0.20-1.00); TOTAL PROTEIN 6.2 g/dL (6.3-8.3)
[2020-01-24] MEDS ORDERED: NS 1,000 ML IV PRN (14:45)
[2020-01-24] MEDS ORDERED: NS 2,000 ML MISC PRN (14:45)
--- NOTE | 2020-01-24 16:12 | PROVIDER DOCUMENTATION ---
This chart was entered by Brenda Arriola Scribe, acting as scribe for Tobias Sosa MD. HPI-General Adult - General Chief Complaint: Weakness Stated Complaint: weak, need dialysis Time Seen by Provider: 01/24/20 12:31 Source: patient, EMS ([facility]) Allergies/Adverse Reactions: Patient Allergies Allergy/AdvReac Type Severity Reaction Status Date / Time Penicillins Allergy Unknown Verified 01/24/20 12:46 Home Medications: Home Medication List Medication Instructions Recorded Confirmed Last Taken Type ATORVAstatin [Lipitor] 20 mg PO DAILY 04/30/18 01/24/20 01/23/20 History Levothyroxine [Synthroid] 50 microgm PO DAILY 04/30/18 01/24/20 01/23/20 History Tamsulosin [Flomax] 0.4 mg PO DAILY 04/30/18 01/24/20 01/23/20 History Amlodipine [Norvasc] 5 mg PO BID #60 tab 05/05/18 01/24/20 01/23/20 Rx Atenolol 25 mg PO DAILY 10/13/19 01/24/20 01/23/20 History Iron Fum,Ps/Folic/Bcomp,C No.9 1 ea PO DAILY 10/13/19 01/24/20 01/23/20 History [Integra Plus Capsule] - History of Present Illness -Gen Adult Nature of Presenting Problems: 85 yowm presents to the ed via ems post fall x2 in 2 days. pt denies any weakness and reports "I've just slipped yesterday and today" pt refused to be brought to ed yesterday and ems just done a lift assist. pt has had a dry cough for 3 weeks and cough drops help relieve his cough temporally. pt ambulates with a walker Location of Pain/Injury: reports: none Pain Radiation: reports: no radiation Quality of Pain: reports: none Severity: reports: mild Onset/Duration: reports: 2 days ago Timing: reports: intermittent Context/Activities at Onset: reports: light activity Modifying Factors: improves with: nothing Associated Symptoms: reports: cough. denies: back/neck pain, chest pain, diarrhea, dizziness, EENT symptoms, fever/chills, malaise, nausea, shortness of breath, vomiting Similar Symptoms Previously?: Yes Recently seen or treated by another doctor?: No Review of Systems - Adult - REVIEW OF SYSTEMS - ADULT Constitutional: denies: chills, fever Eyes: reports: no symptoms reported Ears, Nose, Mouth & Throat: reports: no symptoms reported Cardiovascular: denies: chest pain, palpitations Respiratory: reports: see HPI, cough. denies: shortness of breath, wheezing Gastrointestinal: denies: abdominal pain, diarrhea, nausea, vomiting Genitourinary: reports: no symptoms reported Musculoskeletal: denies: back pain, neck pain Integumentary: reports: no symptoms reported Neurological: denies: dizziness/vertigo, headache/migraines Psychiatric: reports: no symptoms reported Endocrine: reports: no symptoms reported Hematologic/Lymphatic: reports: no symptoms reported Allergic/Immunologic: reports: no symptoms reported All Other Systems: Reviewed and Negative Past History - Adult - PAST MEDICAL HISTORY-ADULT Review of Records: reports: Old Records Reviewed, Nursing Assessment Review, Medications Reviewed, Social history reviewed & non-contributory. Major Childhood Illnesses: reports: denies history Cardiovascular: reports: A-Fib, HTN, hyperlipidemia, LA, PVD Respiratory: reports: denies history Gastrointestinal: reports: denies history Genitourinary: reports: dialysis, ESRD, kidney disease Musculoskeletal: reports: chronic pain Neurological: reports: denies history Psychiatric: reports: denies history Endocrine/Immune: reports: Diabetes, thyroid disorder Diabetes Type: Type 2 Other Conditions: reports: cataract/glaucoma - PRIOR SURGERIES/PROCEDURES Surgical/Procedure History: reports: cholecystectomy, other (dialysis fistula placed) - IMMUNIZATION STATUS Childhood Immunizations: See Nurse Assessment Flu Vaccine: See Nurse Assessment - FAMILY HISTORY Family History: reviewed, not pertinent - SOCIAL HISTORY Smoking: denies Substance Use: denies Living Situation: alone Physical Exam-General - PHYSICAL EXAM-ADULT Initial Vital Signs Reviewed: Yes - CONSTITUTIONAL General Appearance: appears well, alert, no apparent distress (nontoxic in appearance), obese - EYES Eyes: PERRL/EOMI, pink conjunctivae - HEAD, EARS, NOSE, MOUTH & THROAT HENMT: moist mucous membranes - NECK Neck: non-tender, full range of motion, normal inspection - RESPIRATORY Respiratory: chest non-tender, wheezing (bilateral) - CARDIOVASCULAR Cardiovascular: normal peripheral pulses, bradycardia (58) - CHEST (BREASTS) Chest/Breast: other (port noted to rt upper chest) - GASTROINTESTINAL (ABDOMEN) Abdominal Exam: normal bowel sounds, non tender, soft - GENITOURINARY Male Genitalia: deferred Rectal Exam: deferred Hemoccult Exam: deferred - MUSCULOSKELETAL Back Exam: no CVA tenderness, no vertebral tenderness Extremity: normal range of motion, normal capillary refill, pelvis stable, swelling (BLE), other (chronic skin changes noted to BLE) - SKIN Integumentary: normal color, normal turgor, warm/dry - NEUROLOGIC Neurologic: grossly normal - PSYCHIATRIC Psych/Mental Status: normal mood/affect, normal thought content, normal thought process, oriented x 3 Progress - PLAN OF CARE/RESULTS Progress/Plan/Lab Results: Vital Signs - 8 hr 01/24/20 12:31 Temperature 98.8 F Pulse Rate 58 L Respiratory Rate 16 Blood Pressure 118/44 O2 Sat by Pulse Oximetry 98 Result Diagrams: 01/24/20 13:17 01/24/20 13:03 - REASSESSMENT Reassessment #1 Time Reassessed: 13:05 Status: unchanged (pt is resting in bed) - EKG 1 Time of EKG reading by physician:: 12:37 EKG Read and Signed by:: Tobias Sosa EKG Interpretation (*Must complete 3 of following elements*): Abnormal Rate: 64 Rhythm: wide qrs rhythm w/occ pvc QRS: RBB, PVC's CT Interval: normal ST Wave: normal Comments: inferior/anterior infarct, age undetermined - XRAY 1 XRAY: Bilateral XRAY Study: Chest Impression: See EMR Report (FINDINGS: Stable right-sided dialysis catheter. Stable cardiomegaly and pulmonary vascular congestion. There is grossly stable extensive pulmonary edema/volume overload. No large pleural effusion. IMPRESSION: Pulmonary edema/volume overload. No significant change from prior. Electronically signed by Peter Seymour 01/24/2020 1:32 PM 01/24/20 1835 Interpreting Physician: Peter Seymour MD) - CONSULTS/PCP/HOSPITALIST Notification #1 *Consult/PCP/Hospitalist*: dialysis inhouse Time Discussed: 15:56 Reason/Comments: phone consult #2 Consult: dr salazar Time Discussed: 16:02 Reason/Comments: put in hospital will consult #3 Consult: hospitalist Time Discussed: 16:02 ([place] in the ed now speaking with dr sosa) Consult Disposition: Will see in ED, Admit Departure - Departure Date of Disposition Decision: 01/24/20 Time of Disposition Decision: 16:08 DIAGNOSIS: Anemia, Elevated troponin, Fluid overload, Renal failure, Hyponatremia, Hyperkalemia Disposition: ADMITTED INPATIENT 09 Certified Medical Emergency: Emergent Condition: Fair Referrals and Follow-Ups: None,PCP [Primary Care Provider] - - Critical Care Note This patient required my direct & personal management of CC.: No Attestation - Physician/ LUCIO Attestation Patient care was provided by Advanced Practice Provider:: No The physician spent face to face time with patient:: Yes Advanced Practice Provider documentation review:: Supervising physician onsite and consulted in the evaluation and care of this patient. The physician did have a face to face encounter with the patient. This chart was documented by the indicated scribe, (Brenda Arriola Scribe) and accurately reflects the services I performed and decisions made by me, Tobias Sosa MD, as attested by the provider's signature.
[2020-01-24] MEDS ORDERED: ZOFRAN IV PRN (17:02)
[2020-01-24] MEDS ORDERED: TYLENOL PO PRN (18:29)
[2020-01-24] MEDS ORDERED: VANCOMYCIN 1 GM/NS 1 GM/250 ML IVPB IV ONE (18:30)
[2020-01-24] MEDS ORDERED: NS NEB INH SCH (18:45)
[2020-01-24] MEDS: HEPARIN SUBQ SCH (20:14)
[2020-01-24 20:20] LABS: ALBUMIN 3.2 g/dL (3.5-5.0); CALCIUM 9.1 mg/dL (8.8-10.2); CREATININE 3.7 mg/dL (0.7-1.2); PHOSPHORUS 5.9 mg/dL (2.7-4.5); POTASSIUM 4.4 mmol/L (3.5-5.1)
[2020-01-24] MEDS ORDERED: NORVASC PO SCH (21:00)
--- NOTE | 2020-01-24 21:25 | HISTORY AND PHYSICAL ---
CHIEF COMPLAINT: "I've been falling at home, and I've been short of breath and coughing." HISTORY OF PRESENT ILLNESS: Mr. Bourgeois is an 85-year-old male with a history of chronic kidney disease stage 5D on hemodialysis, diabetes mellitus type 2, morbid obesity, aortic stenosis, and a history of WI, who was brought to the ER via EMS after the patient started to complain of increasing shortness of breath and a dry cough. The patient reports that he has fallen at least twice over the span of 2 days. He states that he did not pass out. He just felt weak and fell. The patient normally ambulates with a walker. He also states that his legs have been swelling more than usual. He denies any fever, chills, chest pain, headache or dizziness. He also denies having any abdominal pain, nausea, vomiting, or diarrhea. In the ER, a chest x- ray was done that revealed pulmonary edema with volume overload. The patient was then taken to the dialysis unit for dialysis. PAST MEDICAL HISTORY: 1. Diabetes mellitus type 2. 2. Chronic kidney disease stage 5D. 3. Morbid obesity. 4. Fluid overload. 5. Chronic diastolic CHF. 6. Microcytic anemia. 7. Hypertension. 8. Hypothyroidism. 9. BPH. 10. Diastolic dysfunction. 11. Mild aortic stenosis. 12. History of myocardial infarction. PAST SURGICAL HISTORY: 1. Cholecystectomy. 2. Colorectal fistula repair. 3. Left upper extremity fistula creation October 2019. 4. Tunneled catheter insertion December 2019. FAMILY HISTORY: The patient's father had emphysema and a myocardial infarction. SOCIAL HISTORY: The patient is and lives at home with his . The patient denies any tobacco, alcohol or illicit drug use. The patient normally ambulates with a walker. ALLERGIES: Penicillin. HOME MEDICATIONS: 1. Norvasc 5 mg oral twice a day. 2. Atenolol 25 mg oral daily. 3. Lipitor 20 mg oral daily. 4. Synthroid 50 mcg oral daily. 5. Flomax 0.4 mg oral daily. 6. Multivitamin 1 tab oral daily. REVIEW OF SYSTEMS: A 12-point review of systems has been performed. Please refer to the history of present illness for pertinent positives and negatives. PHYSICAL EXAMINATION: VITAL SIGNS: Temperature 97.9 degrees, blood pressure 119/40, heart rate 65, respirations 22, O2 saturation 98% on room air. GENERAL: This is a morbidly obese male lying in bed in no acute distress. SKIN: The patient has chronic venous stasis involving both lower extremities. HEENT: Normocephalic, atraumatic. PERRLA, EOMI. Oral mucosa is moist. NECK: Supple. No JVD. No lymphadenopathy. HEART: S1, S2 normal. Regular rate and rhythm. LUNGS: Coarse breath sounds bilaterally. No wheezing. No rales. ABDOMEN: Positive bowel sounds. Soft, obese, nontender, nondistended. EXTREMITIES: There is an AV fistula in the left arm, 3+ edema up to the thighs, chronic venous stasis in the legs. NEUROLOGIC: The patient is alert and oriented x3. No focal neurologic deficits noted. Cranial nerves 2 through 12 intact. LABORATORY DATA: Sodium 130, potassium 4.4, chloride 90, CO2 24, BUN 50, creatinine 3.7, glucose 145, calcium 9.1, phosphorus 5.9, troponin 188, albumin 3.2, INR 1. White blood cell count 11, hemoglobin 7.2, hematocrit 22, platelets 241,000. IMAGING: Chest x-ray reveals pulmonary edema/volume overload. EKG: Reveals wide QRS with PVCs. Left axis deviation. ASSESSMENT AND PLAN: 1. Fluid overload with acute on chronic diastolic congestive heart failure. This is being addressed during the patient's routine dialysis sessions. We will monitor the patient closely. 2. Chronic kidney disease stage 5D. We will consult with the game attendant. 3. Morbid obesity. Aware. 4. Hypothyroidism. Continue on Synthroid. 5. Benign prostatic hypertrophy. Continue on Flomax. 6. Mild aortic stenosis. Aware. 7. Anemia. We will check iron studies. The patient may require a blood transfusion during his next dialysis session. We will also check stool for occult blood. 8. Diabetes mellitus type 2. We will start sliding scale insulin and place the patient on a diabetic diet. 9. Elevated troponin. This is likely secondary to the patient's underlying renal disease. Prior troponins were higher than the current troponin. Also, the patient denies having any chest pain. 10. Leukocytosis. Will check blood cultures and a urinalysis. 11.Deep vein thrombosis prophylaxis. Will start the patient on heparin. cc: Jailene Mcgraw MD [facility]
[2020-01-24 22:03] LABS: URINE SOURCE CLEAN CATCH
[2020-01-24] MEDS: NORCO-5 PO PRN (22:10)
[2020-01-24] MEDS: AZACTAM 0.5 GM in NS 50 ML IV SCH (22:11)
[2020-01-24 22:13] LABS: BILIRUBIN URINE NEGATIVE (NEGATIVE); BLOOD URINE NEGATIVE (NEGATIVE); COLOR YELLOW; GLUCOSE URINE 70 mg/dL (NEGATIVE); KETONE URINE NEGATIVE (NEGATIVE); LEUKOCYTES URINE SMALL (NEGATIVE); NITRITE URINE NEGATIVE (NEGATIVE); PROTEIN URINE 100 mg/dL (NEGATIVE); SP GRAVITY URINE 1.009; TURBIDITY URINE CLEAR (CLEAR); UR EPITHELIAL CELLS <10 /HPF (<10); URINE BACTERIA 2+ /HPF; URINE RBC <10 /HPF (<10); UROBILINOGEN URINE NORMAL (NORMAL)
[2020-01-24] MEDS: XOPENEX NEB INH SCH (22:30)
[2020-01-24] MEDS: HUMULIN R SUBQ SCH (23:19)
[2020-01-25] MEDS: NORCO-5 PO PRN (04:15)
[2020-01-25] MEDS: SYNTHROID PO SCH (06:04)
[2020-01-25] MEDS: PRILOSEC PO SCH (06:04)
[2020-01-25] MEDS: HUMULIN R SUBQ SCH ×3 (06:13→16:32)
--- NOTE | 2020-01-25 07:12 | Diag Imaging Result Doc PS360 ---
FLAT/UPRIGHT ABD/1 VIEW CHEST - 01/25/2020 INDICATION: pulmonary edema/constipation TECHNIQUE: COMPARISON: 01/24/2020 FINDINGS: Stable dialysis catheter in good position. Stable cardiomegaly and severe pulmonary vascular congestion. Stable hazy interstitial infiltrates/volume overload in the lung bases. There is a nonobstructive bowel gas pattern. No free air or abnormal calcifications. IMPRESSION: No change from prior. No acute process in the abdomen. Electronically signed by Peter Seymour 01/25/2020 7:10 AM
[2020-01-25 07:53] LABS: BASO# 0.04 X1000 (0.0-0.2); BASO% 0.4 % (0.0-0.8); EOS# 0.14 X1000 (0.0-0.7); EOS% 1.4 % (0.0-10.0); HEMATOCRIT 23.2 % (42.0-52.0); HEMOGLOBIN 7.3 g/dL (14.0-18.0); IMM GRAN# 0.02 X1000 (0.0-0.04); IMM GRAN% 0.2 % (0.0-0.5); LYMPH# 1.95 X1000 (1.2-3.4); LYMPH% 19.4 % (20.5-51.1); MCH 31.6 PG (27-31); MCHC 31.5 g/dL (33-37); MCV 100.4 FL (81-99); MPV 8.9 FL (7.4-10.4); NEUT# 7.22 X1000 (1.4-6.5); NEUT% 71.6 % (42.2-75.2); PLT 232 X1000 (130-400); RBC 2.31 XMIL (4.7-6.1); RDW 13.8 % (11.5-14.5); RETIC% 3.52 % (0.8-2.1); RETIC-HE 36.6 PG (28.2-36.6); WBC 10.07 X1000 (4.8-10.8)
[2020-01-25 08:08] LABS: ALBUMIN 2.9 g/dL (3.5-5.0); CALCIUM 9.1 mg/dL (8.8-10.2); CREATININE 4.4 mg/dL (0.7-1.2); PHOSPHORUS 6.7 mg/dL (2.7-4.5); POTASSIUM 4.7 mmol/L (3.5-5.1)
[2020-01-25 08:19] LABS: HEMOGLOBIN A1C 6.4 % (4.8-6.0)
[2020-01-25 08:37] LABS: FERRITIN 1409 ng/mL (30-400)
[2020-01-25] MEDS ORDERED: TENORMIN PO SCH (09:00)
[2020-01-25] MEDS ORDERED: FLOMAX PO SCH (09:00)
[2020-01-25] MEDS ORDERED: ASPIRIN PO ONE (09:29)
[2020-01-25] MEDS: AZACTAM 0.5 GM in NS 50 ML IV SCH ×2 (09:43→22:07)
[2020-01-25] MEDS: MIRALAX PO SCH (09:44)
[2020-01-25] MEDS: HEPARIN SUBQ SCH ×2 (09:44→22:09)
[2020-01-25] MEDS: PATIENT'S OWN MED PO SCH (09:44)
--- NOTE | 2020-01-25 09:48 | EKG Report ---
Test Performed on : 01/25/2020 09:34:09 AM Test Reason : c/o chest pain Blood Pressure : / mmHG Vent. Rate : 067 BPM Atrial Rate : 077 BPM P-R Int : 000 ms QRS Dur : 156 ms QT Int : 456 ms P-R-T Axes : 000 -33 030 degrees QTc Int : 481 ms Atrial fibrillation. with premature ventricular or aberrantly conducted complexes. Left axis deviation Right bundle branch block Possible Lateral infarct , age undetermined Abnormal ECG When compared with ECG of 24-JAN-2020 12:37, (Unconfirmed) Atrial fibrillation. has replaced Wide QRS rhythm. Confirmed by Noemi ALAS, Salo Jackson ([id number]) on 01/26/2020 9:49:26 AM
[2020-01-25] MEDS: XOPENEX NEB INH SCH ×3 (09:50→22:51)
[2020-01-25] MEDS ORDERED: RETACRIT (ESRD PATIENTS) SUBQ ONE (12:41)
--- NOTE | 2020-01-25 13:09 | NEPHROLOGY CONSULTATION ---
DATE: 01/25/2020 CONSULTING PHYSICIAN: Dr. Parish. REASON FOR CONSULTATION: Medical management. HISTORY OF PRESENT ILLNESS: Mr. Bourgeois is an 85-year-old, white male with CKD stage 5D, treated with hemodialysis. He has been on dialysis for approximately 1 month. He has also diabetes, obesity, aortic stenosis, venous stasis disease, chronic heart failure, etc. He came to the emergency room because of severe weakness. He has a cough and shortness of breath as well as chronic lower extremity edema. None of these symptoms are particularly new but he had simply reached the point where he was not able to compensate for his symptoms and therefore came to the ER. He states he has difficulty with gait instability and falls frequently. No loss of consciousness, palpitations, etc. associated with his falls. His initial evaluation found his blood pressure 119/40 with a heart rate of 65 and he was afebrile. His initial chest x-ray performed on the showed pulmonary edema and volume overload. As such, he was dialyzed and had roughly 2 L of ultrafiltration. His UF volume was limited by hypotension. At the time of my exam, he had no specific complaints except that he was generally uncomfortable and wanted sit up in the chair. He was able to transfer to the chair with minimal assistance from myself and a nurse. PAST MEDICAL HISTORY: As above. He also has mild aortic stenosis, diastolic dysfunction, BPH. HOME MEDICATIONS: Include atorvastatin, levothyroxine, tamsulosin, amlodipine, atenolol, Integra. ALLERGIES: Penicillin. SOCIAL HISTORY: He is and lives with his extended family. He told me today that his has left. I do not have independent confirmation of that. FAMILY HISTORY: Noncontributory otherwise. REVIEW OF SYSTEMS: Noncontributory otherwise. PHYSICAL EXAMINATION: Vital Signs: Blood pressure 113/61, heart rate 65, respirations 18, afebrile. General: Chronically ill, elderly man. Morbidly obese. No acute distress. Skin: Pale and dry. He has lichenification and hyperpigmentation on the lower legs. Pupils are equal. Conjunctivae are pink. Oropharynx is clear. Tongue is moist. Neck: Neck veins are not appreciated. Trachea is midline. Heart: PMI is not palpable. Regular rate and rhythm without murmurs, rubs, or gallops. Lungs: Have equal breath sounds. No crackles or wheezes. Abdomen: Obese and soft. Nontender. Bowel sounds are present. No organomegaly or masses. Extremities: There is 2+ edema. No clubbing or cyanosis. Venous stasis changes as above. IMPRESSION: 1. Chronic kidney disease 5D. He had his routine dialysis yesterday. Electrolytes and acid-base are in target. He remains moderately volume expanded. Next dialysis planned for tomorrow. 2. Anemia. His hemoglobin is low. Iron stores find a low iron saturation but ferritin greater than 1200. B12 and folate are appropriate. We will dose with erythropoietin. Blood pressure is in target. We will minimize his blood pressure medication in order to improve ultrafiltration with dialysis. His blood pressure medications have been withheld and I will also stop his tamsulosin as this also may lead hypotension. cc: Chema Peters MD
--- NOTE | 2020-01-25 13:51 | CARDIOLOGY CONSULTATION ---
DATE: 01/25/2020 HISTORY OF PRESENT ILLNESS: Mr. Bourgeois is an 85-year-old, gentleman with a history of stage IV kidney disease, who has been on dialysis for about a month. He has diabetes, mild aortic stenosis, history of myocardial infarction while he was in [place]. No stent placement per patient. He comes with complaints of cough, increasing shortness of breath, and lower extremity edema. His lower extremity edema has been there for 3 to 4 years. He has mainly instability in gait, and has had some frequent falls as well. He denies chest pain suggestive of angina, but his main problems have been shortness of breath. When he was here in 2019, he received blood transfusion. He has chronic kidney disease. Has been given Epogen by Dr. Peters here, and he is taking iron tablets as well. He complains of black stools, but no obvious blood in his stools. His chest x-ray revealed pulmonary edema, volume overload. When he was admitted at [facility], given his abnormal troponin at that time, cardiac catheterization was recommended. However, he did not want to undergo cardiac catheterization as per the discharge records from [facility]. REVIEW OF SYSTEMS: A 14-point review of systems was done. GI: There is no history of nausea, vomiting, diarrhea. There is no history of hematemesis or melena. Central Nervous System: No focal weakness to suggest a CVA, TIA. : There is no dysuria or hematuria. PAST MEDICAL HISTORY: 1. Coronary artery disease, old myocardial infarction. 2. Hypertension. 3. Diabetes. 4. Morbid obesity. 5. Sleep apnea, obstructive. 6. Hypothyroidism. 7. Chronic kidney disease. Undergoing dialysis. 8. Chronic anemia. 9. Mild diastolic dysfunction with mild aortic stenosis. HOME MEDICATIONS: Include atorvastatin, levothyroxine, tamsulosin, amlodipine, atenolol, Integra. ALLERGIES: He is allergic to penicillin. SOCIAL HISTORY: He is . Lives with his extended family. FAMILY HISTORY: Noncontributory. PHYSICAL EXAMINATION: Vital Signs: Blood pressure 113/61. Heart: First and second heart sounds were heard. There was no S3 gallop. Respiratory: Distant breath sounds. Abdomen: Soft, nontender. There was no guarding or rigidity. Bowel sounds were heard. Central Nervous System: Alert, oriented, was moving all 4 extremities. Extremities: Chronic induration on the lower extremities with 2+ edema. Venous stasis changes. PAST SURGICAL HISTORY: Cholecystectomy, colorectal fistula repair, left upper extremity fistula created in 10/2019. IMAGING AND LABORATORY DATA: Sodium 130, potassium 4.7, BUN 53, creatinine 4.4. Troponin 218. CBC: Hemoglobin 7.2, hematocrit 22, platelet count 241,000, WBC 11.06. Chest x-ray: Pulmonary edema. ASSESSMENT AND PLAN: Mr. Brennen Bourgeois is an 85-year-old, gentleman with history of end- stage renal disease on dialysis, diabetes, morbid obesity, mild aortic stenosis, history of myocardial infarction in the distant past. He comes in with complaints of having had a dry cough, increasing shortness of breath, was noted to be in pulmonary edema. He is going to undergo dialysis tomorrow. From a cardiac standpoint: 1. Preserved left ventricular systolic function with mild aortic stenosis. I have not made any changes to his medication. 2. The patient has a history of myocardial infarction. He says he did undergo arteriogram in [place]. There was no stent placed. He last had a stress test in 2018 at [facility], which was unremarkable. He has abnormal cardiac enzymes, which is probably secondary to his chronic renal insufficiency. Regardless, we will set him up to undergo a Cardiolite stress test for assessment for ischemia. 3. He has chronic anemia, has received Epogen as well. He takes iron tablets and has black stools. There is no obvious bleeding. However, his iron levels were low. We will get stools for occult blood. He may benefit from a unit of blood transfusion given his low hemoglobin, understandably that is chronic. I will defer that to Dr. Mcgraw. 4. Hypertension. Continue with his medications. 5. He is hypothyroid. Continue with his Synthroid. 6. Hyperlipidemia. Continue with Lipitor. Thank you for the consult. Will follow hospital course. cc: Shaheed Tim MD
--- NOTE | 2020-01-25 17:12 | PROGRESS NOTE ---
DATE: 01/25/2020 SUBJECTIVE: The patient is sitting up eating lunch. He states that he feels fine. No acute events noted overnight. OBJECTIVE: Vital Signs: Temperature 98.3 degrees, blood pressure 113/61, heart rate 65, respirations 18, O2 saturation 95% on room air. Intake 300, output 2.1 L. General: This is a morbidly obese male sitting at the edge of the bed in no acute distress. Heart: S1, S2 normal. Regular rate and rhythm. Lungs: Equal air entry. Diminished breath sounds at the bases. Abdomen: Positive bowel sounds. Soft, obese, nontender. Extremities: 2+ edema with chronic venous stasis. Neurologic: The patient is alert and oriented x3. He is able to move all 4 extremities. LABORATORY: White blood cell count 10, hemoglobin 7.3, hematocrit 23, platelets 232,000. Sodium 130, potassium 4.7, chloride 91, CO2 21, BUN 53, creatinine 4.4, glucose 156. Hemoglobin A1c 6.4. Phosphorus 6.7. Troponin 218. ASSESSMENT AND PLAN: 1. Fluid overload. This will be addressed during the patient's routine dialysis sessions. 2. Acute on chronic diastolic congestive heart failure. Continue with volume management as per the senior applications architect. 3. Elevated troponin. The patient was seen by the tint layer and a stress test is planned for Thursday. Continue on the current cardiac medications. 4. Hypothyroidism. Continue on Synthroid. 5. Chronic kidney disease stage 5D. Management as per the senior applications architect. 6. Benign prostatic hypertrophy. Aware. 7. Diabetes mellitus type 2. Continue on sliding scale insulin. 8. Anemia of chronic disease. The patient was started on epoetin. Will likely give the patient 1 unit of packed red blood cells tomorrow with dialysis. 9. Morbid obesity. Aware. 10. Deconditioning with frequent falls. The patient would likely benefit from inpatient rehab placement. 11. Mild aortic stenosis. Aware. 12. Deep venous thrombosis prophylaxis. Continue on heparin. 13. Disposition. Physical Therapy has been consulted. I spoke to the patient's daughter, Indio Douglas, and she stated that she called the ambulance because the patient had fallen twice over the span of 2 days. She states that the patient has been getting weaker at home and her mom is unable to take care of the patient at home, so she is requesting inpatient rehab placement for the patient. Will consult [facility] for inpatient rehab placement. cc: Jailene Mcgraw MD MTDD
[2020-01-25] MEDS: LIPITOR PO SCH (22:08)
[2020-01-26] MEDS: AZACTAM 0.5 GM in NS 50 ML IV SCH ×3 (01:52→20:39)
[2020-01-26] MEDS: HUMULIN R SUBQ SCH ×5 (01:53→20:53)
[2020-01-26] MEDS: PRILOSEC PO SCH (07:42)
[2020-01-26] MEDS: SYNTHROID PO SCH (07:42)
[2020-01-26] MEDS: ASPIRIN PO SCH (08:30)
[2020-01-26] MEDS: HEPARIN SUBQ SCH ×2 (08:31→20:40)
[2020-01-26 08:38] LABS: HEMATOCRIT 22.3 % (42.0-52.0); HEMOGLOBIN 7.1 g/dL (14.0-18.0); MCH 32.3 PG (27-31); MCHC 31.8 g/dL (33-37); MCV 101.4 FL (81-99); RBC 2.2 XMIL (4.7-6.1); RDW 13.8 % (11.5-14.5); WBC 10.28 X1000 (4.8-10.8)
[2020-01-26 08:46] LABS: ALBUMIN 2.9 g/dL (3.5-5.0); CALCIUM 9.1 mg/dL (8.8-10.2); CREATININE 5.2 mg/dL (0.7-1.2); PHOSPHORUS 7.7 mg/dL (2.7-4.5); POTASSIUM 4.9 mmol/L (3.5-5.1)
[2020-01-26] MEDS ORDERED: HEPARIN IV PRN (09:29)
[2020-01-26] MEDS ORDERED: NS 1,000 ML IV PRN (09:29)
[2020-01-26] MEDS ORDERED: NS 2,000 ML MISC PRN (09:29)
--- NOTE | 2020-01-26 10:02 | Extremity Venous Study ---
PROCEDURE NAME: Venous U/S Bilateral Legs - 01/25/2020 REFERRING PHYSICIAN: Lucien. INTERPRETING PHYSICIAN: Addi. TECH: Mark. DESCRIPTION OF PROCEDURE IN DETAIL: Patient has bilateral lower extremity swelling. Bilateral lower extremity venous images accomplished. The common femoral, superficial femoral, deep femoral, popliteal, posterior tibial, peroneal, and greater saphenous veins are imaged bilaterally. The Doppler is used to evaluate the veins for spontaneity, phasicity, respiratory excursion, distal augmentation. All veins are compressible. No intraluminal clot is seen. INTERPRETATION: No evidence of deep or superficial venous thrombosis in either lower extremity and the veins identified. cc: MD Jailene Stewart MD
[2020-01-26] MEDS: NORCO-5 PO PRN ×2 (10:47→20:52)
[2020-01-26] MEDS: MIRALAX PO SCH (12:00)
[2020-01-26] MEDS: PATIENT'S OWN MED PO SCH (12:04)
[2020-01-26] MEDS ORDERED: NS 500 ML IV ONE (12:44)
--- NOTE | 2020-01-26 13:17 | Diag Imaging Result Doc PS360 ---
CHEST-1 VIEW - 01/26/2020 INDICATION: dyspnea COMPARISON: 01/25/2020 FINDINGS: Stable right-sided dialysis catheter. Lung volumes are slightly lower, now critically low. Stable extensive central infiltrates. Stable cardiomegaly. No large pleural effusion. IMPRESSION: Lower lung volumes, otherwise little change from prior. Electronically signed by Peter Seymour 01/26/2020 1:15 PM
--- NOTE | 2020-01-26 13:57 | PROGRESS NOTE ---
DATE: 01/26/2020 SUBJECTIVE: The patient states that he wants to go home. No acute events noted overnight. OBJECTIVE: Vital Signs: Temperature 98.3 degrees, blood pressure 109/52, heart rate 61, respirations 18, O2 saturation is 91% on 2 L nasal cannula. General: This is a morbidly obese male lying in bed, in no acute distress. Heart: S1, S2 normal. Regular rate and rhythm. Lungs: Diminished breath sounds at the bases. No wheezing. No rales. Abdomen: Positive bowel sounds. Soft, nontender, nondistended. Extremities: There is 1+ edema bilaterally with chronic venous stasis. Neurologic: The patient is alert and oriented x3. Labs: White blood cell count 10, hemoglobin 7.1, hematocrit 22, platelets 222,000. Sodium 128, potassium 4.9, chloride 89, CO2 of 20, BUN 65, creatinine 5.2, glucose 148, albumin 2.9. ASSESSMENT AND PLAN: 1. Fluid overload. Improved. The patient has less peripheral edema. Continue to monitor closely. 2. Acute on chronic diastolic congestive heart failure exacerbation. Continue with volume management during the patient's scheduled dialysis sessions. 3. Elevated troponin. The patient is scheduled to undergo a stress test tomorrow. Continue on the current cardiac medications. 4. Hypothyroidism. Continue on Synthroid. 5. Chronic kidney disease stage 5D. Management as per the bellman captain. 6. Benign prostatic hypertrophy. Aware. 7. Anemia of chronic disease. The patient is on Epoetin. Transfusion planned for tomorrow. 8. Diabetes mellitus type 2. Continue on sliding scale insulin. 9. Morbid obesity. Aware. 10. Mild aortic stenosis. Aware. 11. Deconditioning with frequent falls. Continue with physical therapy. marine services technician has been consulted for inpatient rehab placement. 12. Deep vein thrombosis prophylaxis. Continue on heparin. 13. Disposition. Once the patient is medically stable, we will plan to discharge him to an inpatient rehab facility. I called the patient's daughter, Indio Douglas, and updated her on the plan of care. All of her questions were answered. cc: Jailene Mcgraw MD [facility]
[2020-01-26] MEDS: XOPENEX NEB INH SCH ×3 (15:24→22:18)
[2020-01-26] MEDS ORDERED: VANCOMYCIN 1 GM/NS 1 GM/250 ML IVPB IV ONE (17:00)
--- NOTE | 2020-01-26 18:52 | NEPHROLOGY PROGRESS NOTE ---
DATE: 01/26/2020 SUBJECTIVE: He is complaining of pain "help me", complains of feeling weak lying flat in bed. OBJECTIVE: Vital Signs: Blood pressure 114/91, heart rate 73, respirations 19, and afebrile. General: No distress. Skin: Pale and dry. Conjunctivae are pink. Neck: Neck veins are not appreciated. Heart: Regular. Lungs: Equal. No crackles. Abdomen: Soft and nontender. Bowel sounds present. IMPRESSION: 1. Chronic kidney disease 5D. He had his routine dialysis today and tolerated well. 2. Anemia. We will transfuse at his next scheduled dialysis treatment. 3. Physical Therapy. 4. Nutrition. cc: Chema Peters MD
[2020-01-26] MEDS: LIPITOR PO SCH (20:40)
[2020-01-27] MEDS: NORCO-5 PO PRN ×2 (06:26→22:02)
[2020-01-27] MEDS: PRILOSEC PO SCH (06:26)
[2020-01-27] MEDS: SYNTHROID PO SCH (06:28)
[2020-01-27] MEDS: HUMULIN R SUBQ SCH ×4 (06:56→20:51)
[2020-01-27 10:10] LABS: ALBUMIN 2.7 g/dL (3.5-5.0); CALCIUM 9.4 mg/dL (8.8-10.2); CREATININE 4.7 mg/dL (0.7-1.2); PHOSPHORUS 7.1 mg/dL (2.7-4.5); POTASSIUM 5.3 mmol/L (3.5-5.1)
[2020-01-27] MEDS: XOPENEX NEB INH SCH ×3 (10:32→22:15)
[2020-01-27] MEDS: ASPIRIN PO SCH (10:56)
[2020-01-27] MEDS: MIRALAX PO SCH (10:56)
[2020-01-27] MEDS: HEPARIN SUBQ SCH ×2 (10:57→22:02)
[2020-01-27] MEDS ORDERED: VANCOMYCIN 1 GM/NS 1 GM/250 ML IVPB IV SCH (11:45)
--- NOTE | 2020-01-27 12:18 | NEPHROLOGY PROGRESS NOTE ---
DATE: 01/27/2020 SUBJECTIVE: He states he is no better today than yesterday. He continues to just complain of having pain all over. No shortness of breath and he is on room air. Eating some. OBJECTIVE: Vital Signs: Blood pressure 96/77, heart rate 67, respirations 19, temperature 99.2 degrees. Generally: No acute distress. Skin: Warm and dry. Pale. Eyes: Conjunctivae are pink. Neck: Neck veins are not distended. Heart: Regular. Lungs: Equal. Abdomen: Benign. Extremities: Trace edema. No clubbing or cyanosis. IMPRESSION: 1. Weakness. 2. Anemia. Transfuse 1 unit packed red blood cells tomorrow. 3. One of 2 sets positive coagulase-negative Staphylococcus. We will treat presumptively with vancomycin. 4. Enterococcus faecalis urinary tract infection. Should be covered by vancomycin. PLAN: Otherwise, continue to work on nutrition and therapy. He has been very noncompliant with his dialysis prescription. cc: Chema Peters MD
[2020-01-27] MEDS ORDERED: LEXISCAN ONE (12:34)
[2020-01-27 13:34] LABS: ALLEN TEST YES; BE -0.1 mmoll (-3.0-3.0); BLOOD TYPE ARTERIAL; HCO3-(ACT) 24.7 mmoll (20.0-26.0); METHB 1.3 % (0.0-1.5); O2(CT) 9.4 mL/dL (15.0-23.0); PCO2(98.6) 33 mmHg (35-45); SAMPLE BLOOD; SAO2 87.4 % (95.0-100.0); THB 7.9 g/dL (11.5-17.4); pH(98.6) 7.46 (7.35-7.45)
[2020-01-27 13:36] LABS: PO2(98.6) 46 mmHg (60-100)
[2020-01-27 13:37] LABS: MODALITY ROOM AIR; O2HB 84.5 % (95.0-99.0)
--- NOTE | 2020-01-27 15:07 | Diag Imaging Result Doc PS360 ---
EXAM: CHEST-1 VIEW 01/27/2020 HISTORY: dyspnea TECHNIQUE: AP upright chest at 1453 COMMENT: There is a double-lumen catheter in the right internal jugular with its tip just above the right atrium. There is increased pulmonary vascularity and interstitial pulmonary edema. The edema present in the parahilar regions of the upper lobes on 01/26/2020 has apparently improved. IMPRESSION: Pulmonary edema and pulmonary vascular engorgement. Electronically signed by Nadeem Starr 01/27/2020 3:05 PM
--- NOTE | 2020-01-27 15:45 | Diag Imaging Result Document ---
PROCEDURE NAME: MYOCARDIAL PERF SCAN, STR/REST - 01/27/2020 STUDY: Lexiscan Cardiolite stress test. FINDINGS: Lexiscan was infused per standard protocol. There was no chest pain. Baseline electrocardiogram revealed normal sinus rhythm. Right bundle branch block. Cardiolite was injected. Gated SPECT images were obtained in standard views. 16.5 mCi of Cardiolite was injected for the rest phase. 45.9 mCi of Cardiolite was injected for the stress phase. Images revealed left ventricular cavity size of 110 end-diastolic volume which is normal. There is significant diaphragmatic and chest wall attenuation. There is a large sized moderate to severe grade fixed defect in the inferior wall inferoapical wall diagnostic of infarct or scar. In addition, there is also a fixed defect in the inferolateral wall suggestive of scar. There is small tyrell-infarct ischemia in the left ventricular apex. Left ventricular ejection fraction by gated SPECT was 68%. Wall motion revealed inferior wall hypokinesis. CONCLUSIONS: 1. No chest pain. 2. Nondiagnostic Lexiscan stress electrocardiogram. 3. Myocardial perfusion images revealed low-grade small-sized tyrell-infarct ischemia in the left ventricular apex. 4. There is moderate to severe grade fixed defect in the inferior inferoapical and inferolateral wall suggestive of infarct or scar. 5. Left ventricular ejection fraction by gated SPECT was 68%. There is inferior wall hypokinesis. cc: MD Erica Robertson PA
[2020-01-27] MEDS: VANCOMYCIN 1 GM/NS 1 GM/250 ML IVPB IV ONE ×2 (15:53→17:22)
[2020-01-27] MEDS: PATIENT'S OWN MED PO SCH (15:53)
--- NOTE | 2020-01-27 16:56 | PROGRESS NOTE ---
DATE: 01/27/2020 SUBJECTIVE: The patient just returned from his stress test and he states that he is short of breath and does not feel well. An ABG was done that revealed a PO2 of 46 on room air. The patient has now been placed on a Ventimask and will be transferred to the ICU. OBJECTIVE: Vital Signs: Temperature 98.4 degrees blood pressure 118/50, heart rate 100, respirations 19, O2 saturation 99% on Venturi mask. General: This is a morbidly obese male lying in bed in no acute distress. Heart: S1, S2 normal. Tachycardic. Lungs: Equal air entry bilaterally. Diminished breath sounds at the bases. Abdomen: Positive bowel sounds. Soft, obese. Extremities: 1+ edema bilaterally with chronic venous stasis. LABS: ABG pH 7.4, pCO2 33, PO2 46, bicarb 24, sodium 129, potassium 5.3, chloride 92, CO2 18, BUN 54, creatinine 4.7, glucose 171, phosphorus 7.1, albumin 2.7. Chest x-ray reveals pulmonary edema. Urine culture reveals Enterococcus faecalis. ASSESSMENT AND PLAN: 1. Acute hypoxemic respiratory failure. Likely secondary to pulmonary edema. The patient is due for dialysis tomorrow. We will continue on the Venturi mask and bronchodilator therapy. 2. Fluid overload. This will be addressed during the patient's routine dialysis sessions. 3. Acute on chronic diastolic congestive heart failure exacerbation. Continue with volume management with dialysis. 4. Elevated troponin. The patient's stress test was noted to be abnormal. This was discussed with Dr. Tim who recommended medical management. We will continue on the current cardiac medications. 5. Urinary tract infection secondary to Enterococcus faecalis. The patient will receive vancomycin with each dialysis session. 6. Mild aortic stenosis. Aware. 7. Anemia of chronic disease. The patient will receive a blood transfusion tomorrow during dialysis. 8. Chronic kidney disease stage 5 D. Management as per the viticulture teacher. 9. Hypothyroidism. Continue on Synthroid. 10. Hypotension. We will hold the patient's antihypertensive regimen. 11. Deconditioning and frequent falls. Aware. Once the patient is improved from a medical standpoint, physical therapy will be restarted. 12. Benign prostatic hypertrophy. Aware. 13. Diabetes mellitus type 2. Continue on sliding scale insulin. 14. Deep vein thrombosis prophylaxis. Continue on heparin. 15. Disposition. The patient will be transferred to the ICU for closer monitoring. cc: Jailene Mcgraw MD MTDD
[2020-01-27] MEDS: LIPITOR PO SCH (22:01)
[2020-01-28 04:59] LABS: ALLEN TEST YES; BE -1.6 mmoll (-3.0-3.0); BLOOD TYPE ARTERIAL; HCO3-(ACT) 23.7 mmoll (20.0-26.0); METHB 0.6 % (0.0-1.5); O2(CT) 9.9 mL/dL (15.0-23.0); O2HB 95.4 % (95.0-99.0); PCO2(98.6) 36 mmHg (35-45); PO2(98.6) 78 mmHg (60-100); SAMPLE BLOOD; SAO2 97.7 % (95.0-100.0); THB 7.3 g/dL (11.5-17.4); pH(98.6) 7.41 (7.35-7.45)
[2020-01-28 05:01] LABS: HEMATOCRIT 22.4 % (42.0-52.0); MCHC 31.3 g/dL (33-37); MCV 102.3 FL (81-99); MPV 8.8 FL (7.4-10.4); RBC 2.19 XMIL (4.7-6.1); RDW 13.7 % (11.5-14.5); WBC 11.75 X1000 (4.8-10.8)
[2020-01-28 05:01] LABS: MODALITY VENTIMASK
[2020-01-28 05:05] LABS: CALCIUM 8.7 mg/dL (8.8-10.2); CREATININE 5.7 mg/dL (0.7-1.2)
[2020-01-28] MEDS: HUMULIN R SUBQ SCH ×4 (06:19→20:05)
[2020-01-28] MEDS: PRILOSEC PO SCH (06:20)
[2020-01-28] MEDS: SYNTHROID PO SCH (06:20)
--- NOTE | 2020-01-28 07:29 | Diag Imaging Result Doc PS360 ---
EXAM: CHEST-PORTABLE HISTORY: pneumonia TECHNIQUE: Single view COMPARISON: 01/27/2020 FINDINGS: There are bilateral infiltrates/pulmonary edema. These are similar to the prior exam. Heart is mildly prominent. There may be small pleural effusions. No change in the right jugular line. IMPRESSION: Stable chest Electronically signed by Aldo Delarosa 01/28/2020 7:26 AM
[2020-01-28] MEDS: MIRALAX PO SCH (08:18)
[2020-01-28] MEDS: HEPARIN SUBQ SCH ×2 (08:19→19:59)
[2020-01-28] MEDS: ASPIRIN PO SCH (08:19)
[2020-01-28] MEDS: PATIENT'S OWN MED PO SCH (08:22)
[2020-01-28] MEDS: XOPENEX NEB INH SCH ×3 (09:10→22:55)
[2020-01-28] MEDS ORDERED: TYLENOL PO PRN (10:35)
[2020-01-28] MEDS ORDERED: NS 1,000 ML IV PRN (10:35)
[2020-01-28] MEDS ORDERED: NS 2,000 ML MISC PRN (10:35)
--- NOTE | 2020-01-28 13:24 | NEPHROLOGY PROGRESS NOTE ---
DATE: 01/28/2020 SUBJECTIVE: He is asleep, but arousable. He complains of nausea. OBJECTIVE: Vital Signs: Blood pressure 180/61, heart rate 71, respiration 39, afebrile. Intake 250 mL. Output none recorded. General: No acute distress. Skin: Pale and dry. HEENT: Conjunctivae are pink. Neck: Neck veins are not appreciated. Heart: Regular. No murmurs, rubs or gallops. Lungs: Have equal breath sounds. No crackles. Abdomen: Obese soft, nontender. Bowel sounds present. Extremities: 2+ edema. No clubbing or cyanosis. IMPRESSION: Chronic kidney disease 5D. Continue his routine dialysis. 2K bath. 37 bicarbonate. 4 L UF goal. cc: Chema Peters MD
[2020-01-28] MEDS ORDERED: VANCOMYCIN 1 GM/NS 1 GM/250 ML IVPB IV ONE (17:00)
--- NOTE | 2020-01-28 18:30 | PROGRESS NOTE ---
DATE: 01/28/2020 SUBJECTIVE: The patient states that he had a horrible night. He complains of nausea and keeps asking for someone to help him. OBJECTIVE: Vital Signs: Temperature 97.6 degrees, blood pressure 121/63, heart rate 72, respirations 18, and O2 saturation is 98% on 6 L nasal cannula. General: This is a morbidly obese male lying in bed in no acute distress. Heart: S1, S2. Normal. Regular rate and rhythm. Lungs: Diminished breath sounds bilaterally. No wheezing. Abdomen: Positive bowel sounds. Soft, obese, nontender, nondistended. Extremities: Two plus edema with chronic venous stasis. Neurologic: The patient is alert and oriented x3. LABORATORIES: White blood cell count 11, hemoglobin 7, hematocrit 22, platelets 281,000. Sodium 135, potassium 5, chloride 95, CO2 of 22, BUN 62, creatinine 5.7, glucose 142, calcium 8.7. STUDIES: Chest x-ray: Stable chest. Bilateral infiltrates and pulmonary edema. ASSESSMENT AND PLAN: 1. Acute hypoxemic respiratory failure. Likely secondary to pulmonary edema. This will be addressed during the patient's dialysis today. We will also check a procalcitonin level. Continue with antibiotic therapy. 2. Fluid overload. The patient is scheduled for dialysis today. 3. Acute on chronic diastolic congestive heart failure exacerbation. Continue with volume management via dialysis. 4. Urinary tract infection secondary to Enterococcus faecalis. Continue with vancomycin during each dialysis session. 5. Mild aortic stenosis. Aware. 6. Elevated troponin with abnormal stress test. As per Dr. Tim, we will continue with medical management. 7. Anemia of chronic disease. The patient is scheduled to get a transfusion today during dialysis. 8. Chronic kidney disease stage 5D. Management as per the subassembly assembler. 9. Hypothyroidism. Continue on Synthroid. 10. Hypotension. We will continue to hold the patient's antihypertensive regimen. 11. Benign prostatic hypertrophy. Aware. 12. Diabetes mellitus type 2. Continue on sliding scale insulin. 13. Deconditioning and frequent falls. Aware. Continue with physical therapy. The patient's COVID-19 test is negative. 14. Deep vein thrombosis prophylaxis. Continue on heparin. DISPOSITION: We will continue to monitor the patient in the ICU. cc: Jailene Mcgraw MD
[2020-01-28] MEDS: LIPITOR PO SCH (20:00)
[2020-01-28] MEDS: NORCO-5 PO PRN (20:07)
[2020-01-29 05:07] LABS: ALLEN TEST YES; BE 2.3 mmoll (-3.0-3.0); BLOOD TYPE ARTERIAL; HCO3-(ACT) 26.7 mmoll (20.0-26.0); METHB 1.1 % (0.0-1.5); O2HB 93.5 % (95.0-99.0); PCO2(98.6) 38 mmHg (35-45); PO2(98.6) 70 mmHg (60-100); SAMPLE BLOOD; SAO2 96.4 % (95.0-100.0); THB 9.8 g/dL (11.5-17.4); pH(98.6) 7.45 (7.35-7.45)
[2020-01-29 05:09] LABS: MODALITY CANNULA
[2020-01-29] MEDS: PRILOSEC PO SCH ×2 (05:36→06:11)
[2020-01-29] MEDS: SYNTHROID PO SCH ×2 (05:37→06:11)
[2020-01-29] MEDS: HUMULIN R SUBQ SCH ×4 (06:11→20:04)
[2020-01-29 07:10] LABS: CREATININE 3.8 mg/dL (0.7-1.2); POTASSIUM 4.5 mmol/L (3.5-5.1)
--- NOTE | 2020-01-29 08:09 | Diag Imaging Result Doc PS360 ---
EXAM: CHEST-PORTABLE - 01/29/2020 HISTORY: dyspnea TECHNIQUE: Portable chest COMPARISON: 01/28/2020 FINDINGS: There is cardiomegaly similar to prior. There are bilateral infiltrates or edema which appear stable. There are possible small bilateral pleural effusions. There is no evidence of pneumothorax. Central venous catheter remains in place. IMPRESSION: Stable bilateral infiltrates/edema. Electronically signed by Yonny Cheng 01/29/2020 8:07 AM
[2020-01-29 08:24] LABS: HEMATOCRIT 26.5 % (42.0-52.0); HEMOGLOBIN 8.1 g/dL (14.0-18.0); MCH 31.4 PG (27-31); MCHC 30.6 g/dL (33-37); MCV 102.7 FL (81-99); MPV 8.6 FL (7.4-10.4); RBC 2.58 XMIL (4.7-6.1); RDW 14.8 % (11.5-14.5); WBC 9.59 X1000 (4.8-10.8)
--- NOTE | 2020-01-29 08:54 | Diag Imaging Result Doc PS360 ---
EXAM: CT THORAX W/O CONTRAST - 01/29/2020 HISTORY: hypoxia TECHNIQUE: CT thorax without contrast. No contrast administered per request of the referring provider. COMPARISON: 01/29/2020 portable chest FINDINGS: There is cardiomegaly. There are bilateral interstitial opacities. There are lumbar bilateral alveolar opacities which is most dense at the posterior upper lobes. There are small bilateral pleural effusions. There is no evidence of pneumothorax. There are no substantially enlarged mediastinal lymph nodes identified. There are atherosclerotic calcifications noted. IMPRESSION: Pulmonary edema and/or bilateral pneumonia. This exam was performed using automated exposure control, adjustment of mA or kV according to patient size, and/or use of iterative reconstruction technique. Electronically signed by Yonny Cheng 01/29/2020 8:52 AM
[2020-01-29] MEDS: ASPIRIN PO SCH (10:00)
[2020-01-29] MEDS: HEPARIN SUBQ SCH ×2 (10:00→20:18)
[2020-01-29] MEDS: MIRALAX PO SCH (10:16)
[2020-01-29] MEDS: PATIENT'S OWN MED PO SCH (10:19)
[2020-01-29] MEDS: XOPENEX NEB INH SCH ×2 (11:26→16:11)
--- NOTE | 2020-01-29 16:56 | PROGRESS NOTE ---
DATE: 01/29/2020 SUBJECTIVE: The patient states that his stomach hurts but he did eat his breakfast anyway. OBJECTIVE: Vital Signs: Temperature 98.8 degrees, blood pressure 102/65, heart rate 69, respirations 18, O2 saturation is 96% on 6 L nasal cannula. General: This is a morbidly obese male lying in bed, in no acute distress. Heart: S1, S2 normal. Regular rate and rhythm. Lungs: Diminished breath sounds bilaterally. No wheezing. No rales. Abdomen: Positive bowel sounds. Soft, obese, nontender, nondistended. Extremities: There is 2+ edema bilaterally. Neurologic: The patient is alert and oriented x3. Labs: White blood cell count 9.5, hemoglobin 8.1, hematocrit 26, platelets 293,000. Sodium 135, potassium 4.5, chloride 95, CO2 of 20, BUN 37, creatinine 3.8, glucose 121, calcium 9. Chest CT shows pulmonary edema and/or bilateral pneumonia. ASSESSMENT AND PLAN: 1. Acute hypoxemic respiratory failure. Likely a combination of pulmonary edema and pneumonia. We will broaden the patient's antibiotic coverage. Continue with bronchodilator therapy and supplemental oxygen. 2. Acute pulmonary edema with acute on chronic diastolic congestive heart failure exacerbation. This will be addressed during the patient's dialysis session. 3. Possible pneumonia. Will add azactam. Continue on Vancomycin. 4. Urinary tract infection secondary to Enterococcus faecalis. Continue with vancomycin after each dialysis session. 5. Mild aortic stenosis. Aware. 6. Elevated troponin with an abnormal stress test. Continue with medical management as directed by the net lead developer. 7. Anemia of chronic disease. Improved. The patient received a blood transfusion yesterday. 8. Chronic kidney disease stage 5D. Management as per the lock and dam equipment repairer. 9. Hypothyroidism. Continue on Synthroid. 10. Hypotension. Monitor closely. 11. Diabetes mellitus type 2. Continue on sliding scale insulin. 12. Deconditioning and frequent falls. Aware. The patient will likely be sent to inpatient rehab once medically stable. The patient's Covid-19 test is negative. 13. Deep vein thrombosis prophylaxis. Continue on heparin. cc: Jailene Mcgraw MD MTDD
[2020-01-29] MEDS: LIPITOR PO SCH (20:18)
[2020-01-30] MEDS: MUCOMYST 20% INH SCH ×3 (00:45→22:01)
[2020-01-30] MEDS: XOPENEX NEB INH SCH ×4 (00:45→22:01)
[2020-01-30 05:56] LABS: CALCIUM 9.2 mg/dL (8.8-10.2); CREATININE 4.7 mg/dL (0.7-1.2); POTASSIUM 4.2 mmol/L (3.5-5.1)
[2020-01-30] MEDS: HUMULIN R SUBQ SCH ×4 (06:10→21:40)
[2020-01-30] MEDS: PRILOSEC PO SCH (06:10)
[2020-01-30] MEDS: SYNTHROID PO SCH (06:10)
--- NOTE | 2020-01-30 07:28 | Diag Imaging Result Doc PS360 ---
EXAM: CHEST-1 VIEW HISTORY: pneumonia TECHNIQUE: Single view COMPARISON: 01/29/2020 FINDINGS: Poor inspiratory effort. The heart is enlarged. No change of the right jugular line. There are diffuse bilateral infiltrates/pulmonary edema. IMPRESSION: No interval improvement Electronically signed by Aldo Delarosa 01/30/2020 7:26 AM
[2020-01-30] MEDS: ASPIRIN PO SCH (08:05)
[2020-01-30] MEDS: MIRALAX PO SCH (08:06)
[2020-01-30] MEDS: PATIENT'S OWN MED PO SCH (08:06)
[2020-01-30] MEDS: HEPARIN SUBQ SCH ×2 (08:06→21:32)
[2020-01-30 09:46] LABS: BASO# 0.05 X1000 (0.0-0.2); BASO% 0.4 % (0.0-0.8); EOS# 0.28 X1000 (0.0-0.7); EOS% 2.4 % (0.0-10.0); HEMATOCRIT 27.3 % (42.0-52.0); HEMOGLOBIN 8.4 g/dL (14.0-18.0); IMM GRAN# 0.04 X1000 (0.0-0.04); IMM GRAN% 0.3 % (0.0-0.5); LYMPH# 2.16 X1000 (1.2-3.4); LYMPH% 18.5 % (20.5-51.1); MCH 31.2 PG (27-31); MCHC 30.8 g/dL (33-37); MCV 101.5 FL (81-99); MONO# 0.99 X1000 (0.11-0.59); MONO% 8.5 % (1.7-9.3); MPV 8.5 FL (7.4-10.4); NEUT# 8.18 X1000 (1.4-6.5); NEUT% 69.9 % (42.2-75.2); PLT 346 X1000 (130-400); RBC 2.69 XMIL (4.7-6.1); RDW 14.3 % (11.5-14.5)
--- NOTE | 2020-01-30 14:45 | NEPHROLOGY PROGRESS NOTE ---
DATE: 01/30/2020 SUBJECTIVE: He is about the same. He still states that he is not doing well. No specific complaint, however. Remains very weak and poor improvement in exercise tolerance. He has been evaluated with another chest x-ray and may have pneumonia. OBJECTIVE: Vital Signs: Blood pressure 107/50, heart rate 76, respirations 20, afebrile. Generally: Chronically ill man, no acute distress. Skin: Warm and dry. Neck: Neck veins are not appreciated. Oropharynx is dry. Heart: Regular. No gallops. Lungs: Equal, shallow. No crackles. Abdomen: Obese soft, nontender. Bowel sounds are present. Extremities: There is 3+ edema. No clubbing or cyanosis. IMPRESSION: 1. Chronic kidney disease 5 D. He remains markedly volume overloaded with edema and abnormal chest x-ray. Blood pressure has been a limitation in terms of dialysis. We will plan for an extended dialysis treatment tomorrow in order to address his volume status. He is on vancomycin and aztreonam for possible pneumonia. He is on no antihypertensive medication. 2. Electrolytes and acid-base are in target. I will call his daughter today. cc: Chema Peters MD
--- NOTE | 2020-01-30 15:55 | PROGRESS NOTE ---
DATE: 01/30/2020 SUBJECTIVE: The patient is resting comfortably in bed. No acute events noted overnight. OBJECTIVE: Vital Signs: Temperature 98 degrees, blood pressure 107/50, heart rate 76, respirations 24, O2 saturation 99% on 6 L nasal cannula. General: This is a morbidly obese male sitting up in bed in no acute distress. Heart: S1, S2 normal. Regular rate and rhythm. Lungs: Diminished breath sounds bilaterally. No wheezing. No rales. Abdomen: Positive bowel sounds. Soft, obese, nontender, nondistended. Extremities: 2+ edema with chronic venous stasis. Neurologic: The patient is alert and oriented x3. LABS: White blood cell count 11, hemoglobin 8.4, hematocrit 27, platelets 346,000. Sodium 133, potassium 4.2, chloride 95, CO2 21, BUN 52, creatinine 4.7, glucose 132. Chest x-ray shows bilateral infiltrates and pulmonary edema. ASSESSMENT AND PLAN: 1. Acute hypoxemic respiratory failure. Likely combination of pulmonary edema and possible pneumonia. The patient's antibiotic coverage has been broadened. The blood cultures remain negative and the sputum culture remains negative. We will also consult with the delinquent tax collection assistant. 2. Acute pulmonary edema with acute on chronic diastolic congestive heart failure. This will be addressed during the patient's dialysis sessions. 3. Possible pneumonia. Azactam has been added. Continue on vancomycin. 4. Urinary tract infection secondary to Enterococcus faecalis. Continue with vancomycin after each dialysis session. 5. Mild aortic stenosis. Aware. 6. Anemia of chronic disease. Stable. The patient received a blood transfusion on Thursday. 7. Chronic kidney disease stage 5D. Management as per the car pre cooler. 8. Elevated troponin with an abnormal stress test. Continue with medical management as directed by the iron piler. 9. Hypotension. Aware. The patient is not receiving any antihypertensive medication at this time. 10. Diabetes mellitus type 2. Continue on sliding scale insulin. 11. Deconditioning and frequent falls. Aware. The patient is requiring a high amount of oxygen at this time, so his ability to participate in physical therapy is limited at this time. 12. Deep vein thrombosis prophylaxis. Continue on heparin. 13. Disposition. The patient's COVID-19 test is negative. However, the patient's respiratory status is still very poor. We will continue to monitor on PVC. I called the patient's daughter, Indio Douglas and updated her on the patient's condition. All of her questions were answered. cc: Jailene Mcgraw MD [facility]
[2020-01-30] MEDS ORDERED: AZACTAM 1 GM in NS 50 ML IV SCH (17:00)
--- NOTE | 2020-01-30 21:27 | PULMONOLOGY CONSULTATION ---
DATE: 01/30/2020 REQUESTING CLINICIAN: Dr. Mcgraw. REASON FOR CONSULTATION: Acute hypoxemic respiratory failure. HISTORY OF PRESENT ILLNESS: Mr. Bourgeois is an 85-year-old male with multiple medical problems outlined below including morbid obesity, diabetes mellitus, and end-stage renal disease who moved to [facility] from [place] in 2017. The patient has had 4 admissions to this hospital over that period of time and has required oxygen the entire time of each admission. The patient was initiated on dialysis about a month ago. He was admitted to the hospital 01/24/2020 with fluid overload and worsening shortness of breath. He remains fluid overloaded but hypotension has limited additional negative fluid balance. The patient reports he has been diagnosed with sleep apnea, but does not have a CPAP machine. He cannot give details of the diagnosis and actually indicated that I had performed the study. I do not perform sleep evaluations. The patient has a flat affect. He appears depressed. He reports his daughter convinced his to leave him and now is trying to put him in a long term. The details of this are not clear to this practitioner. PAST MEDICAL HISTORY: 1. Morbid obesity with a body mass index of 47. 2. End-stage renal disease on hemodialysis. 3. Diabetes mellitus. 4. Aortic stenosis. 5. Diastolic heart failure. 6. Chronic hypoxemic respiratory failure. 7. Obstructive sleep apnea, as per above. 8. Hypothyroidism. 9. Chronic anemia. SOCIAL HISTORY: Dysfunctional family arrangement suggested by patient's report. According to his intake Social Work note, his continues to live in the house that he left. It also indicates would like the patient to return home, so it is not clear if his current recollection represents delirium, but should be clarified. FAMILY HISTORY: Noncontributory to current presentation. REVIEW OF SYSTEMS: Notable for shortness of breath with any [*] is afebrile for the last 24 hours. Blood pressure 107/50, heart rate 76, respiratory rate 24, oxygen saturation 99% on 6 L per nasal cannula.HEENT: Pupils are equal and reactive. Oropharynx appears clear. Neck: Supple. Chest: Reveals diminished breath sounds bilaterally. Cardiac: Distant heart sounds. Normal S1, normal S2. Abdomen: Obese and soft. Extremities: Reveal 2+ peripheral edema. LABORATORIES: CT scan of the thorax yesterday reveals cardiomegaly with small effusions and pulmonary edema. Chest x-ray today reveals cardiomegaly with pulmonary edema. IMPRESSION: An 85-year-old with: 1. Acute on chronic hypoxemic respiratory failure. 2. End-stage renal disease. 3. Diastolic heart failure with pulmonary edema. 4. Obstructive sleep apnea, which is not being treated. 5. Morbid obesity. 6. Fluid overload. DISCUSSION: An 85-year-old with problems outlined above. The patient most likely has acute on chronic hypoxemic respiratory failure. He is a difficult historian as outlined above. He will need oxygen at the time of discharge. He will need an outpatient sleep evaluation. RECOMMENDATION: 1. Continue oxygen at the time of discharge. 2. Recommend outpatient evaluation for sleep apnea. The patient is unlikely to significantly improve if he has untreated sleep apnea. cc: Emilio Boyce MD
[2020-01-30] MEDS: LIPITOR PO SCH (21:33)
[2020-01-31 05:01] LABS: ALLEN TEST YES; BLOOD TYPE ARTERIAL; HCO3-(ACT) 24.1 mmoll (20.0-26.0); METHB 1.6 % (0.0-1.5); PCO2(98.6) 35 mmHg (35-45); SAMPLE BLOOD; SAO2 90.7 % (95.0-100.0); THB 6.4 g/dL (11.5-17.4); pH(98.6) 7.43 (7.35-7.45)
[2020-01-31 05:14] LABS: MODALITY CANNULA; PO2(98.6) 49 mmHg (60-100)
[2020-01-31 05:15] LABS: O2HB 87.8 % (95.0-99.0)
[2020-01-31 05:55] LABS: HEMATOCRIT 24.3 % (42.0-52.0); HEMOGLOBIN 7.7 g/dL (14.0-18.0); MCH 32.2 PG (27-31); MCHC 31.7 g/dL (33-37); MCV 101.7 FL (81-99); MPV 8.6 FL (7.4-10.4); RBC 2.39 XMIL (4.7-6.1); RDW 14.3 % (11.5-14.5); WBC 10.19 X1000 (4.8-10.8)
[2020-01-31 06:10] LABS: ALBUMIN 2.8 g/dL (3.5-5.0); CALCIUM 8.9 mg/dL (8.8-10.2); CREATININE 5.7 mg/dL (0.7-1.2); PHOSPHORUS 5.9 mg/dL (2.7-4.5); POTASSIUM 3.8 mmol/L (3.5-5.1)
--- NOTE | 2020-01-31 06:34 | Diag Imaging Result Doc PS360 ---
EXAM: CHEST-PORTABLE HISTORY: dyspnea TECHNIQUE: Single view COMPARISON: 01/30/2020 FINDINGS: Poor inspiratory effort. The heart is mildly prominent. There is pulmonary edema and a small left pleural effusion. No change in the right jugular portacatheter. IMPRESSION: Stable chest Electronically signed by Aldo Delarosa 01/31/2020 6:31 AM
[2020-01-31] MEDS: HUMULIN R SUBQ SCH ×4 (07:22→21:26)
[2020-01-31] MEDS: PRILOSEC PO SCH (07:29)
[2020-01-31] MEDS: SYNTHROID PO SCH (07:30)
[2020-01-31] MEDS ORDERED: TYLENOL PO PRN (08:01)
[2020-01-31] MEDS ORDERED: HEPARIN IV PRN ×2 (08:01)
[2020-01-31] MEDS ORDERED: NS 2,000 ML MISC PRN (08:01)
[2020-01-31] MEDS ORDERED: NS 1,000 ML IV PRN (08:01)
[2020-01-31] MEDS: HEPARIN SUBQ SCH ×2 (08:11→21:26)
[2020-01-31] MEDS: ASPIRIN PO SCH (08:11)
[2020-01-31] MEDS: PATIENT'S OWN MED PO SCH (08:12)
[2020-01-31] MEDS: MIRALAX PO SCH (08:12)
[2020-01-31] MEDS: XOPENEX NEB INH SCH ×3 (10:48→22:34)
[2020-01-31] MEDS: MUCOMYST 20% INH SCH ×2 (10:48→22:34)
--- NOTE | 2020-01-31 11:51 | NEPHROLOGY PROGRESS NOTE ---
DATE: 01/31/2020 SUBJECTIVE: He is currently on dialysis. Sleeping so I did not arouse him. Blood pressure 140/56, heart rate 74, respirations 22, O2 saturation 94% on 6 L. PLAN: For 6 hour dialysis treatment today with 4 to 6 L ultrafiltration as tolerated. Reassess his volume status thereafter. His hemoglobin is low but stable. He has received 1 unit of packed red blood cells. cc: Chema Peters MD
--- NOTE | 2020-01-31 15:34 | PROGRESS NOTE ---
DATE: 01/31/2020 SUBJECTIVE: When I evaluated this patient he was getting dialysis. He was complaining of some abdominal discomfort, especially periumbilical area and left side of the abdomen, no signs of peritoneal irritation. He has been having apparently daily bowel movements and he is eating basically his whole food. OBJECTIVE: Vital Signs: Temperature 98.3 degrees, pulse 74, respiratory rate 22, blood pressure 140/56, oxygen saturation 94% on 6 L of nasal cannula. HEENT: Head normocephalic, no trauma. PERRLA. Neck: Supple. I cannot see JVD because of his neck size. Central trachea. Chest: Decreased breath sounds bilaterally. No wheezing. Some crepitus at the bases. Abdomen: Soft. Positive bowel sounds. Obese. Some tenderness to palpation at the level of the periumbilical area and left side of the abdomen. It is protuberant. Extremities: 2-3+ lower extremity edema with chronic venous stasis. Neurological: Patient is awake. He is oriented x3. He does have generalized weakness. LABORATORY: WBC 10.1, hemoglobin 7.7, hematocrit 24.3, platelets 308,000. Sodium 132, potassium 3.8, chloride 93, bicarbonate 22, BUN 66, creatinine 5.7, glucose 131, calcium 8.9, albumin 2.8. ASSESSMENT AND PLAN: 1. Acute hypoxemic respiratory failure, likely due to fluid overload. I will continue with the same management for now. I am not sure if this patient has pneumonia at this moment. I think it is just edema, but I will continue with the same management. 2. Acute pulmonary edema with acute on chronic diastolic heart failure exacerbation. For this we need to remove some fluid and he is getting dialysis today. We will continue with same management. 3. Possible pneumonia. He is been on a vancomycin and Azactam. 4. Urinary tract infection secondary to Enterococcus faecalis. Continue with the same management. 5. Mild aortic stenosis, aware. 6. Anemia of chronic disease, stable. It looks like he received 1 unit of blood recently. 7. Chronic kidney disease stage 5. Continue with hemodialysis as scheduled. When I evaluated this patient he was getting dialysis and he was tolerating that. 8. Elevated troponin with abnormal stress test. Continue with medical management as directed by Cardiology Department. 9. Hypertension, aware. He is not getting any blood pressure medication at this moment. He at home used to be on amlodipine and atenolol. 10. Type 2 diabetes. Continue sliding scale insulin. 11. Having physical deconditioning and frequent falls. We need to continue with physical therapy during this hospitalization, but his ability to participate in physical therapy is limited at this time because of his high oxygen requirement. We will continue with the same management. Hopefully, after removing more fluid his oxygen requirement will be lower than that. 12. Deep vein thrombosis prophylaxis with heparin. cc: Bienvenido Rome MD
[2020-01-31] MEDS: VANCOMYCIN 1 GM/NS 1 GM/250 ML IVPB IV ONE ×2 (16:39→17:54)
[2020-01-31] MEDS ORDERED: AZACTAM 1 GM in NS 50 ML IV ONE (17:00)
--- NOTE | 2020-01-31 19:46 | PULMONOLOGY PROGRESS NOTE ---
DATE: 01/31/2020 SUBJECTIVE: The patient is awake and alert. He was seen during dialysis. He does not have shortness of breath at rest. He does report some nonspecific abdominal pain. OBJECTIVE: Vital Signs: The patient has been afebrile for the last 24 hours. Blood pressure 133/44, heart rate 77, respiratory rate 21, oxygen saturation 99%. HEENT: Pupils are equal and reactive. Oropharynx appears clear. Neck: Supple. Chest: Shallow breath sounds bilaterally with faint basilar crackles. Cardiac exam: S1 and S2. Abdomen: Significantly obese and soft. Extremities: Chronic edema. LABORATORIES: White blood count 10.12, hemoglobin 7.9, platelet count 308,000, sodium 132, potassium 3.8, chloride 93, bicarbonate 22, BUN 66, creatinine 5.7. IMPRESSION: An 85-year-old with: 1. Hypoxemic respiratory failure. 2. Morbid obesity. 3. Obstructive sleep apnea. 4. Diastolic heart failure. 5. Acute on chronic hypoxemic respiratory. PLAN: 1. Continue hemodialysis. 2. Encourage patient to mobilize and ambulate as possible. 3. Recommend outpatient sleep evaluation. cc: Emilio Boyce MD
[2020-01-31] MEDS: LIPITOR PO SCH (21:26)
[2020-02-01 05:50] LABS: HEMATOCRIT 27.1 % (42.0-52.0); HEMOGLOBIN 8.4 g/dL (14.0-18.0)
[2020-02-01 06:23] LABS: ALBUMIN 2.7 g/dL (3.5-5.0); CALCIUM 9.2 mg/dL (8.8-10.2); CREATININE 3.3 mg/dL (0.7-1.2); PHOSPHORUS 3.8 mg/dL (2.7-4.5); POTASSIUM 4.1 mmol/L (3.5-5.1)
[2020-02-01] MEDS: HUMULIN R SUBQ SCH ×4 (06:28→21:41)
[2020-02-01] MEDS: PRILOSEC PO SCH (06:30)
[2020-02-01] MEDS: SYNTHROID PO SCH (06:31)
--- NOTE | 2020-02-01 06:34 | Diag Imaging Result Doc PS360 ---
EXAM: CHEST-PORTABLE 02/01/2020 HISTORY: abnormal exam TECHNIQUE: AP portable at 0550 COMMENT: There is alveolar pulmonary edema plus minus pneumonia. This has not changed appreciably since 01/31/2020. IMPRESSION: Pulmonary edema. Electronically signed by Nadeem Starr 02/01/2020 6:31 AM
[2020-02-01] MEDS ORDERED: NS 2,000 ML MISC PRN (07:10)
[2020-02-01] MEDS ORDERED: NS 1,000 ML IV PRN (07:10)
[2020-02-01] MEDS ORDERED: TYLENOL PO PRN (07:10)
[2020-02-01] MEDS: HEPARIN SUBQ SCH ×2 (09:24→23:03)
[2020-02-01] MEDS: PATIENT'S OWN MED PO SCH (09:25)
[2020-02-01] MEDS: ASPIRIN PO SCH (09:25)
[2020-02-01] MEDS: MIRALAX PO SCH (09:25)
[2020-02-01] MEDS: XOPENEX NEB INH SCH ×2 (09:30→16:32)
[2020-02-01] MEDS: MUCOMYST 20% INH SCH (09:30)
[2020-02-01] MEDS ORDERED: TESSALON PO PRN (10:17)
--- NOTE | 2020-02-01 12:39 | NEPHROLOGY PROGRESS NOTE ---
DATE: 02/01/2020 SUBJECTIVE: He is lying in bed. He has the same general complaints of not feeling good and being ready to go home. He has not been out of bed at all. He is eating his meals. OBJECTIVE: Vital Signs: Blood pressure 99/33, heart rate 79, respirations 18, afebrile. Intake 1300 mL, output 5400 mL. General: No acute distress. Skin: Warm and dry. Pale. HEENT: Conjunctivae are pink. Neck: Neck veins are not appreciated. Heart: Regular. Lungs: Equal. No crackles. Abdomen: Soft, nontender. Obese. Extremities: There is 1+ edema, clearly improved. IMPRESSION: Chronic kidney disease 5D with volume overload. Dialysis again today for standard 3.5-hour treatment with a goal of another 3 to 4 liters ultrafiltration as his blood pressure allows. Electrolytes and acid-base are in target. Focus on rehab. cc: Chema Peters MD
--- NOTE | 2020-02-01 13:24 | PROGRESS NOTE ---
DATE: 02/01/2020 SUBJECTIVE: The patient seems to be breathing better but he does have generalized weakness. I have requested physical therapy and occupational therapy to take care of this patient. He is still having some abdominal discomfort but better compared to yesterday. He is complaining of some cough and asking for some cough medication. Yesterday, during dialysis, 5.4 L of fluid had been removed, he is tolerating p.o. and having bowel movements. Probably, this patient can be discharged this week to a rehab center. I will discuss the case with Dr. Peters tomorrow and decide that. OBJECTIVE: Vital Signs: Temperature 98.7 degrees, pulse 71, respiratory rate 25, blood pressure 109/95, oxygen saturation 97% on 4 L of nasal cannula. HEENT: Head normocephalic. No trauma. PERRLA. Neck: Supple. I cannot see JVD because of his neck size. Central trachea. Chest: Decreased breath sounds bilaterally. No wheezing. Crepitus at the bases. Abdomen: Soft. Some tenderness to palpation around the periumbilical area and left lower quadrant. The abdomen is protuberant. Extremities: There is 2+ lower extremity edema with chronic venous stasis. Neurological Examination: Awake and alert. He is oriented. He is following commands. Laboratory: Hemoglobin 8.4, hematocrit 27.1. Sodium 136, potassium 4.1, chloride 97, bicarbonate 24, BUN 36, creatinine 3.3, glucose 208, calcium 9.2, albumin 2.7. ASSESSMENT AND PLAN: 1. Acute hypoxemic respiratory failure, likely due to fluid overload. Continue with the same management for now. Probably, there is an underlying pneumonia but I think it is just edema, but I will continue with antibiotics. 2. Acute pulmonary edema with acute on chronic diastolic heart failure exacerbation. We need to continue removing some fluid. During dialysis. We removed around 5.4 L. We will continue with the same management. Hopefully, tomorrow, he will have a new dialysis session. 3. Possible pneumonia. Continue with antibiotics. 4. Urinary tract infection due to Enterococcus faecalis. Continue with the same management. 5. Mild aortic stenosis, aware. 6. Anemia of chronic disease, stable. He received 1 unit of packed red blood cells and the hemoglobin has been stable. 7. Chronic kidney disease stage 5. Continue with hemodialysis as scheduled. 8. Elevated troponin with abnormal stress test. Continue with medical management as directed by cardiology department. 9. Hypertension. Aware. He is actually not getting any kind of blood pressure medication at this moment. He used to be on amlodipine and atenolol. Blood pressure has been stable. 10. Type 2 diabetes. Continue with sliding scale insulin. 11. Generalized weakness and physical deconditioning. Apparently, also, he has been having frequent falls. Continue physical therapy during this hospitalization and hopefully, he will be discharged to a rehab center. 12. Deep vein thrombosis prophylaxis. Continue with the same treatment. He is on heparin. cc: Bienvenido Rome MD
[2020-02-01] MEDS ORDERED: AZACTAM 1 GM in NS 50 ML IV ONE (17:00)
[2020-02-01] MEDS ORDERED: VANCOMYCIN 1 GM/NS 1 GM/250 ML IVPB IV ONE (18:00)
[2020-02-01] MEDS: LIPITOR PO SCH (23:03)
--- NOTE | 2020-02-02 01:38 | PULMONOLOGY PROGRESS NOTE ---
DATE: 02/01/2020 SUBJECTIVE: The patient is awake and alert. He has a flat affect. He has a slightly negative disposition. OBJECTIVE: Vital Signs: The patient has been afebrile for the last 24 hours. Blood pressure 105/46, heart rate 70, respiratory rate 20, oxygen saturation 98% on 4 L per nasal cannula. HEENT: Pupils are equal and reactive. Oropharynx is clear. Neck: Supple. Chest: Reveals distant breath sounds bilaterally with faint crackles diffusely. Cardiac: S1-S2. Abdomen: Obese and soft. Extremities: Reveal 1+ edema. LABORATORIES: Chest x-ray reveals cardiomegaly with vascular congestion without change. IMPRESSION: An 85-year-old with: 1. Hypoxemic respiratory failure. 2. Obstructive sleep apnea without treatment. 3. Morbid obesity. 4. Diastolic heart failure. RECOMMENDATION: 1. Continue hemodialysis. 2. Continue oxygen therapy. 3. Anticipate discharge with home oxygen. 4. Recommend outpatient sleep apnea evaluation. cc: Emilio Boyce MD
[2020-02-02] MEDS: XOPENEX NEB INH SCH ×4 (03:59→22:19)
[2020-02-02] MEDS: MUCOMYST 20% INH SCH ×3 (03:59→22:19)
[2020-02-02 06:08] LABS: HEMATOCRIT 26.7 % (42.0-52.0); HEMOGLOBIN 8.2 g/dL (14.0-18.0)
[2020-02-02 06:38] LABS: CALCIUM 9.3 mg/dL (8.8-10.2); CREATININE 3.2 mg/dL (0.7-1.2); PHOSPHORUS 3.6 mg/dL (2.7-4.5); POTASSIUM 4.2 mmol/L (3.5-5.1)
[2020-02-02] MEDS: PRILOSEC PO SCH (06:53)
[2020-02-02] MEDS: SYNTHROID PO SCH (06:54)
[2020-02-02] MEDS: HUMULIN R SUBQ SCH ×4 (06:57→22:16)
--- NOTE | 2020-02-02 09:08 | Diag Imaging Result Doc PS360 ---
EXAM: CHEST-PORTABLE 02/02/2020 HISTORY: reassess CHF TECHNIQUE: AP portable at 0851 COMMENT: Compared to 02/01/2020 there has been some improvement in the interstitial pulmonary edema. The heart size and primary vascularity remain increased. There is a double-lumen catheter in the right internal jugular with its tip in the right atrium. IMPRESSION: Improved pulmonary edema. Electronically signed by Nadeem Starr 02/02/2020 9:06 AM
[2020-02-02] MEDS: HEPARIN SUBQ SCH ×2 (09:40→22:11)
[2020-02-02] MEDS: ASPIRIN PO SCH (09:40)
[2020-02-02] MEDS: PATIENT'S OWN MED PO SCH (09:40)
[2020-02-02] MEDS: MIRALAX PO SCH (09:40)
--- NOTE | 2020-02-02 10:09 | NEPHROLOGY PROGRESS NOTE ---
DATE: 02/02/2020 SUBJECTIVE: He is sitting up in the chair, hoping for discharge. OBJECTIVE: Vital Signs: Blood pressure 107/52, heart rate 78, respirations 17, afebrile. General: No acute distress. Skin: Warm and dry. Neck: Neck veins are not appreciated. Heart: Regular. No gallops. Lungs: Equal. No crackles. Abdomen: Benign. Extremities: There is 1+ edema limited below the knee. IMPRESSION: 1. Congestive heart failure. Improving with dialysis. From my perspective, it is okay for him to be discharged and we can continue his treatment as an outpatient and continue to challenge his dry weight. 2. Electrolytes/acid base in target. 3. Anemia. Below target but stable. We will treat by protocol as an outpatient. cc: Chema Peters MD
--- NOTE | 2020-02-02 13:32 | PROGRESS NOTE ---
DATE: 02/02/2020 SUBJECTIVE: The patient seems to be breathing better. He does have generalized weakness, continue physical therapy, occupational therapy. I discussed the case with Nephrology Department. He is good to be discharged, but they have requested a new hepatitis profile, as soon as we have that he can be discharged to a rehab center. OBJECTIVE: Vital Signs: Temperature 97.9 degrees, pulse 73, respiratory rate 18, blood pressure 127/53, oxygen saturation 96% on 4 L nasal cannula. HEENT: Head normocephalic. No trauma. PERRLA. Neck: Supple. I cannot see JVD because of his neck size. Central trachea. Chest: Decreased breath sounds bilaterally. No wheezing. Some crepitus at the bases. Abdomen: Soft, obese, protuberant, nontender, nondistended. No hepatosplenomegaly. He has some tenderness to palpation at the level of the left lower quadrant and periumbilical area. Extremities: Two plus lower extremity edema with chronic venous stasis. Neurological Examination: Awake, alert, oriented. He is weak. LABORATORY: Hemoglobin 8.2, hematocrit 26.7. Sodium 137, potassium 4.2, chloride 99, bicarbonate 26, BUN 29, creatinine 3.2, glucose 153, calcium 9.3, albumin 3. ASSESSMENT AND PLAN: 1. Acute hypoxemic respiratory failure likely due to fluid overload. Will continue with same management for now, probably there is an underlying pneumonia, but I think is just edema. I will continue with antibiotics. 2. Acute pulmonary edema with [id number] diastolic heart failure exacerbation. We need to continue with same management. He is getting dialysis, so far 7.7 L of fluid of negative balance. 3. Possible pneumonia. Aware. Continue with antibiotics. I do not think he needs to be discharged with antibiotics. 4. Urinary tract infection due to Enterococcus faecalis. Continue with same management. He is getting antibiotics. 5. Mild aortic stenosis. Aware. 6. Anemia of chronic disease, stable. Status post 1 packed red blood cells. 7. 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 8. Elevated troponin with abnormal stress test, continue with medical management for now as directed by Cardiology Department. 9. Hypertension. Aware. He is actually not getting any kind of blood pressure medication at this moment. He used to be on amlodipine and atenolol, but the blood pressure has been stable. 10. Type 2 diabetes. Continue with same treatment. 11. Generalized weakness and physical deconditioning. Physical Therapy and Occupational Therapy on board, they are planning to send this patient to a rehab center as soon as we have a hepatitis profile back. 12. Deep vein thrombosis prophylaxis on heparin. cc: Bienvenido Rome MD
[2020-02-02] MEDS: NORCO-5 PO PRN (15:52)
--- NOTE | 2020-02-02 19:53 | PULMONOLOGY PROGRESS NOTE ---
DATE: 02/02/2020 SUBJECTIVE: The patient is awake and alert. He reports he is not having a good day, but he cannot specify why. He denies shortness of breath. He is tolerating p.o. intake. OBJECTIVE: Vital Signs: The patient has been afebrile for the last 24 hours. Blood pressure 134/46, heart rate 73, respiratory rate 19, oxygen saturation 97% on 4 L per nasal cannula. HEENT: Pupils are equal reactive. Oropharynx appears clear. Neck: Supple. Chest: Reveals diminished breath sounds bilaterally. Cardiac exam: S1-S2. Abdomen: Obese and soft. Extremities: Reveal decreased edema in the hands with continued 1+ edema in the legs. LABORATORIES: Chest x-ray reveals cardiomegaly with interstitial edema. The edema has improved when compared to yesterday. IMPRESSION: An 85-year-old with: 1. Hypoxemic respiratory failure. 2. Obstructive sleep apnea without current treatment. 3. Obesity. 4. Diastolic heart failure. PLAN: 1. Continue to remove fluid as tolerated per Nephrology. 2. Continue oxygen. 3. Anticipate oxygen need at the time of discharge. 4. The patient will need outpatient sleep apnea evaluation. cc: Emilio Boyce MD
[2020-02-02] MEDS: LIPITOR PO SCH (22:12)
[2020-02-03] MEDS: HUMULIN R SUBQ SCH ×3 (06:07→15:42)
[2020-02-03] MEDS: SYNTHROID PO SCH (06:24)
[2020-02-03] MEDS: PRILOSEC PO SCH (06:24)
[2020-02-03 07:32] LABS: BASO# 0.05 X1000 (0.0-0.2); BASO% 0.4 % (0.0-0.8); EOS% 2.6 % (0.0-10.0); HEMATOCRIT 26.2 % (42.0-52.0); HEMOGLOBIN 7.8 g/dL (14.0-18.0); IMM GRAN# 0.04 X1000 (0.0-0.04); IMM GRAN% 0.4 % (0.0-0.5); LYMPH# 2.37 X1000 (1.2-3.4); LYMPH% 20.8 % (20.5-51.1); MCH 30.6 PG (27-31); MCHC 29.8 g/dL (33-37); MCV 102.7 FL (81-99); MONO# 0.79 X1000 (0.11-0.59); MONO% 6.9 % (1.7-9.3); MPV 8.5 FL (7.4-10.4); NEUT# 7.87 X1000 (1.4-6.5); NEUT% 68.9 % (42.2-75.2); PLT 310 X1000 (130-400); RBC 2.55 XMIL (4.7-6.1); RDW 13.7 % (11.5-14.5); WBC 11.42 X1000 (4.8-10.8)
[2020-02-03] MEDS ORDERED: NS 1,000 ML IV PRN (07:45)
[2020-02-03] MEDS ORDERED: HEPARIN IV PRN (07:45)
[2020-02-03] MEDS ORDERED: TYLENOL PO PRN (07:45)
[2020-02-03] MEDS ORDERED: NS 2,000 ML MISC PRN (07:45)
[2020-02-03 07:56] LABS: ALBUMIN 2.9 g/dL (3.5-5.0); CALCIUM 9.4 mg/dL (8.8-10.2); CREATININE 4.6 mg/dL (0.7-1.2); PHOSPHORUS 5.5 mg/dL (2.7-4.5); POTASSIUM 4.1 mmol/L (3.5-5.1)
[2020-02-03] MEDS: ASPIRIN PO SCH (09:07)
[2020-02-03] MEDS: HEPARIN SUBQ SCH (09:07)
[2020-02-03] MEDS: MIRALAX PO SCH (09:08)
[2020-02-03] MEDS: PATIENT'S OWN MED PO SCH (09:08)
[2020-02-03 10:29] LABS: BANDS 2 % (0-1); LYMPHS 18 % (21-51); MONO 4 % (1-9); SEGS 74 % (42-75)
[2020-02-03] MEDS: NORCO-5 PO PRN (10:36)
[2020-02-03] MEDS: XOPENEX NEB INH SCH ×2 (11:05→15:21)
[2020-02-03] MEDS: MUCOMYST 20% INH SCH (11:05)
[2020-02-03 13:14] LABS: HEPATITIS PROFILE ACUTE SEE COMMENTS
--- NOTE | 2020-02-03 14:44 | NEPHROLOGY PROGRESS NOTE ---
DATE: 02/03/2020 SUBJECTIVE: He is currently on dialysis. Awake, alert. No shortness of breath. Anticipates discharge today. OBJECTIVE: Vital Signs: Blood pressure 105/60, heart rate 71, respirations 16, afebrile. General: No acute distress. Skin: Warm and dry. Neck: Neck veins are not distended. Heart: Regular. Lungs: Equal. No crackles. Abdomen: Soft, obese, nontender. Bowel sounds present. Extremities: 1+ edema. No clubbing or cyanosis. IMPRESSION: Congestive heart failure. Progressively improved with aggressive volume management on dialysis. He is still hypervolemic but I believe he has derived maximum hospital benefit. Okay for discharge today and we will follow him carefully as an outpatient. He will transfer to the [facility] until he is out of rehab. He does have significant anemia with hemoglobin 7.8 today. This has changed very little over the last 4 days. cc: Chema Peetrs MD
--- NOTE | 2020-02-03 15:07 | PULMONOLOGY PROGRESS NOTE ---
DATE: 02/03/2020 SUBJECTIVE: Mr. Bourgeois is sitting up in the bed watching TV. He does state that he feels that he is breathing better. He has no specific complaints other than he just wants to [*]. OBJECTIVE: Vital Signs: Blood pressure is 114/53 with a heart rate of 77, respirations are 18, temperature is 98.9 degrees oral with O2 saturations that are 100% on 4 L nasal cannula. HEENT: Head is normocephalic, atraumatic. Mucous membranes are moist. Pupils are equal, round, react to light. Sclerae anicteric. Neck: Supple with trachea midline. Cardiovascular: Regular rate and rhythm. S1 and S2 appreciated. No murmur. Pulmonary: Breath sounds are diminished throughout. Chest rises and falls symmetric with respirations. Gastrointestinal: Abdomen is soft, nontender, nondistended with bowel sounds in all 4 quadrants. Extremities: No clubbing, cyanosis. He does have some bilateral lower extremity edema, which he feels is improving. Neurologic: He is alert and oriented. LABORATORY DATA: WBC is 11.4 with hemoglobin 7.8, hematocrit 26.2, platelets of 310,000. Sodium 135, potassium 4.1, BUN 51, creatinine 4.6 with a glucose of 135. Repeat hepatitis panel reveals nonreactive hepatitis B surface antigen, hepatitis B core IgM, hepatitis C antibody, hepatitis A IgM all nonreactive. ASSESSMENT: This is an 85-year-old gentleman with 1. Hypoxemic respiratory failure. 2. Obstructive sleep apnea without current treatment. 3. Obesity. 4. Diastolic heart failure. PLAN: 1. Dialysis per Nephrology. 2. Continue supplemental oxygen as needed. 3. Recommended outpatient sleep apnea evaluation. 4. Anticipate oxygen needed at the time of discharge. Dictated by MIGEL Coleman for Emilio Boyce MD cc: MIGEL Coleman MD
--- NOTE | 2020-02-03 15:16 | DISCHARGE SUMMARY ---
ADMISSION DATE: 01/24/2020 DISCHARGE DATE: 02/03/2020 DISPOSITION: [facility]. CONSULTATIONS: 1. Nephrology was consulted. Patient was seen by Dr. Peters. 2. Pulmonary Medicine was consulted. Patient was seen by Dr. Boyce. 3. Cardiology was consulted. Patient was seen by Dr. Tim. INVASIVE PROCEDURES: None. IMAGING STUDIES OF SIGNIFICANCE: A myocardial perfusion scan showed moderate to severe grade severe degree fixed defect in the inferior apical and inferolateral suggestive of infarct or scar, patient ejection fraction of 68%. CT scan of the chest show pulmonary edema and/or bilateral pneumonia. ADMISSION DIAGNOSIS: 1. Fluid overload secondary to acute on chronic diastolic heart failure. 2. Chronic kidney disease stage 5. 3. Hypothyroidism. 4. Anemia. 5. Elevated troponins. DIAGNOSIS AT THE TIME OF DISCHARGE: 1. Acute hypoxemic respiratory failure secondary to pulmonary edema improved. 2. Pulmonary edema secondary to acute on chronic diastolic heart failure. 3. Possible superimposed pneumonia. 4. Enterococcal faecalis urinary tract infection improved. 5. 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 6. Ischemic cardiomyopathy with normal ejection fraction with elevated troponins on admission, patient was evaluated by Cardiology. A stress test also showed scar or infarct tissue but no reversible changes. 7. Hypertension controlled. 8. Diabetes mellitus type 2. DISCHARGE MEDICATIONS: 1. Atorvastatin 20 mg p.o. daily. 2. Levothyroxine 50 mcg p.o. daily. 3. Tamsulosin 0.4 mg p.o. daily. 4. Amlodipine 5 mg p.o. daily. 5. Atenolol 25 mg p.o. daily. 6. Omeprazole 40 mg p.o. daily. 7. MiraLAX. PRESENTING COMPLAINT: Shortness of breath, cough, falling at home. HISTORY OF PRESENT COMPLAINT: Mr. Bourgoeis 85-year-old gentleman with a history of diabetes, morbid obesity, on hemodialysis due to CKD, came to the emergency room because of increased shortness of breath and cough. Patient has been falling twice for the past couple days. Upon presenting he was evaluated, a chest x-ray did show pulmonary edema with volume overload. He was subsequently admitted for further medical care. HOSPITAL COURSE: Mr. Bourgeois was admitted to the medical floor was evaluated by Nephrology as well and in house dialysis was initiated right away. He continued losing fluid, he is currently about 10,796 fluid negative. His weight has also gone from 310 to 287 today. He feels a lot better. Shortness of breath has also significantly improved. During the hospital course patient was also evaluated by both Pulmonary Medicine and Cardiology. This morning Mr. Bourgeois refers to be doing a lot better. He is still on 4 L of supplemental oxygen but he is saturating well. He is pending the hepatitis panel to be able to be discharged to rehab to continue with his physical sikh. Of note Mr. Bourgeois was also evaluated by physical therapy. He was only able to do about 10 feet with full weightbearing, minimum assist front wheel walker and we think that he will need inpatient rehab to restore his deficits. At the time of the discharge his vitals, blood pressure is currently 138/61, pulse of 81, respiration is 16, temperature 97.4 degrees, has mild trace of edema in the lower extremity. There are chronic changes in the lower extremity consistent with chronic venous stasis dermatopathy, otherwise for most part he remains stable with BMI of 45.0. All the discharge instructions have been discussed with him. He voiced understanding. TIME SPENT: 38 minutes. cc: Jadiel Lovelace MD
[2020-02-03 15:46] VITALS: BP 145/59
== END 2020-02-03 16:52 | DRG 291 ==
LOC: ED 12:24 → SUATTDRO 17:18 → 3N 17:18 → ICU 01-27 16:17 → 2N 01-30 09:44 → 3N 02-02 18:52
PROVIDERS: ATTEND Internal Medicine